=== PATIENT | female | born 1970 | race Caucasian/White ===

== ENCOUNTER 2022-03-22 14:57 | Emergency (ER) | payer BC, SELFPAY ==
--- OUTSIDE RECORDS SUMMARY | 2022-03-22 15:02 | XMS REPORT | Continuity of Care Document ---
:1970 Author Organization [facility] t Address [address] [place] [address] Care Team Providers Name Role Phone Mario Clark MD Primary Care Physician SARAH HARRY Attending Clinician Unavailable Mario Clark MD Attending Clinician Team, [facility] Health Maintenance Attending Clinician Unavailcammie wilson Doctor Unassigned, [place] Attending Clinician Unavailable MARIO CLARK Attending Clinician Unavailable Payers Payer Name Policy Type Policy Effective Date Expiration Date Sour ce Number [facility] [id number] 2021 00:00:00 [employer] [id number] 2018 [facility]704246790108/08 00:00:00 [facility] dical /2019-PresentHMO Branch /PPO/POS Problems Condition Condition Condition Status Onset Resolution Last Treating Co mments Source Name Details Category Date Date Treatment Clinician Date Severe Severe Disease Active Univers headache headache 4-29 ity of 00:00: [place] 00 Medical Branch Non-intrac Non-intrac Disease Active U nivers table table 4-29 ity of vomiting vomiting 00:00: [place] with with 00 Medical nausea, nausea, Branch unspecifie unspecifie d vomiting d vomiting type type Chronic Chronic Disease Active 2014-08 Univers back pain back pain 0-30 ity of 00:00: [place] 00 Medical Branch Anxiety Anxiety Disease Active 2014-08 Univers 0-30 ity of 00:00: [place] 00 Medical Branch Migraine Migraine Disease Active 2014-08 Unive rs equivalent equivalent 0-30 it y of syndrome syndrome 00:00: [place] 00 Medical Branch Allergies, Adverse Reactions, Alerts Allergy Allergy Status Severity Reaction(s) Onset Inactive Treating Comm ents Source Name Type Date Date Clinician CIPROFLO DRUG Active Unknown-Cmnt 2014-08 Un noel ORTEZ INGREDI 0-07 ity of 00:00: [place] 00 Medical Branch Ciproflo Propensi Active Unknown - 2014-08 Uni vers xacin ty to See comments 0-07 ity of adverse 00:00: [place] reaction 00 Medical s Branch Social History Social Habit Start Date Stop Date Quantity Comments Source Exposure to Not sure [facility] SARS-CoV-2 (event) [facility] Alcohol intake 2021-04-29 2021-04-29 .43 /d University of 00:00:00 00:00:00 [facility] Cigarettes smoked 2018-01-26 2018-01-26 Univers ity of current (pack per 00:00:00 00:00:00 [facility] ) - Reported Branch Cigarette 2018-01-26 2018-01-26 University of pack-years 00:00:00 00:00:00 [facility] Tobacco use and 2018-01-26 2018-01-26 Smokeless Universit y of exposure 00:00:00 00:00:00 tobacco non-user [facility] History of tobacco 2010 Cigarette Smoker University of use 00:00:00 [facility] Sex [birth year] Universit y of 00:00:00 00:00:00 [facility] Smoking Status Start Date Stop Date Source Ex-smoker 2018-01-26 00:00:00 2018-01-26 00:00:00 Universi ty of [facility] Medications Ordered Filled Start Stop Current Ordering Indication Dosage Frequency Signature Comments Components Source Medication Medication Date Date Medication? Clinician (SIG) Name Name TIZANIDINE Yes [id number] TAKE 1 U nivers 4 mg tablet 8-01 TABLET BY ity of 00:00: MOUTH [place] 00 EVERY 8 Medical HOURS Branch NEEDED FOR MODERATE PAIN RIZATRIPTAN Yes [id number] DISSOLVE 1 Univers 10 mg 7-25 TABLET ON ity of disintegrat 00:00: THE TONGUE [place] ing tablet 00 EVERY DAY Medi cara NEEDED Branch FOR MIGRAINE HEADACHE RIZATRIPTAN 2022-0 Yes [id number] DISSOLVE 1 Univers 10 mg 7-25 TABLET ON ity of disintegrat 00:00: THE TONGUE [place] ing tablet 00 EVERY DAY Medi cara NEEDED Branch FOR MIGRAINE HEADACHE RIZATRIPTAN 2-0 Yes [id number] DISSOLVE 1 Univers 10 mg 7-06 TABLET ON ity of disintegrat 00:00: THE TONGUE [place] ing tablet 00 EVERY DAY Medi cara NEEDED Branch FOR MIGRAINE HEADACHE RIZATRIPTAN 2021-0 2- No [id number] DISSOLVE 1 Univers 10 mg 7-06 07-25 TABLET ON ity of disintegrat 00:00: 00:00 THE TONGUE [place] ing tablet 00 :00 EVERY DAY Medi cara NEEDED Branch FOR MIGRAINE HEADACHE GABAPENTIN 2-0 Yes [id number] TAKE 1 Univers 400 mg 7-05 CAPSULE BY ity of capsule 00:00: MOUTH [place] 00 THREE Medical TIMES Branch DAILY GABAPENTIN 2022-0 Yes [id number] TAKE 1 Univers 400 mg 7-05 CAPSULE BY ity of capsule 00:00: MOUTH [place] 00 THREE Medical TIMES Branch DAILY GABAPENTIN 2022-0 Yes [id number] TAKE 1 Univers 400 mg 7-05 CAPSULE BY ity of capsule 00:00: MOUTH [place] 00 THREE Medical TIMES Branch DAILY GABAPENTIN 2022-0 Yes [id number] TAKE 1 Univers 400 mg 7-05 CAPSULE BY ity of capsule 00:00: MOUTH [place] 00 THREE Medical TIMES Branch DAILY RIZATRIPTAN 2-0 Yes [id number] DISSOLVE 1 Univers 10 mg 6-27 TABLET ON ity of disintegrat 00:00: THE TONGUE [place] ing tablet 00 EVERY DAY Medi cara NEEDED Branch FOR MIGRAINE HEADACHE RIZATRIPTAN 2021-0 Yes [id number] DISSOLVE 1 Univers 10 mg 6-27 TABLET ON ity of disintegrat 00:00: THE TONGUE [place] ing tablet 00 EVERY DAY Medi cara NEEDED Branch FOR MIGRAINE HEADACHE RIZATRIPTAN 2-0 2- No [id number] DISSOLVE 1 Univers 10 mg 6-27 07-06 TABLET ON ity of disintegrat 00:00: 00:00 THE TONGUE [place] ing tablet 00 :00 EVERY DAY Medi cara NEEDED Branch FOR MIGRAINE HEADACHE RIZATRIPTAN 2021-0 Yes [id number] DISSOLVE 1 Univers 10 mg 6-02 TABLET ON ity of disintegrat 00:00: THE TONGUE [place] ing tablet 00 EVERY DAY Medi cara NEEDED Branch FOR MIGRAINE HEADACHE RIZATRIPTAN 2021-0 2021- No [id number] DISSOLVE 1 Univers 10 mg 6-02 - TABLET ON ity of disintegrat 00:00: 00:00 THE TONGUE [place] ing tablet 00 :00 EVERY DAY Medi cara NEEDED Branch FOR MIGRAINE HEADACHE rizatriptan 2021-0 Yes [id number] DISSOLVE 1 Univers 10 mg 5-20 TABLET ON ity of disintegrat 00:00: THE TONGUE [place] ing tablet 00 EVERY DAY Medi cara NEEDED Branch FOR MIGRAINE HEADACHE rizatriptan 2021-0 Yes [id number] DISSOLVE 1 Univers 10 mg 5-20 TABLET ON ity of disintegrat 00:00: THE TONGUE [place] ing tablet 00 EVERY DAY Medi cara NEEDED Branch FOR MIGRAINE HEADACHE rizatriptan 2021-0 2021- No [id number] DISSOLVE 1 Univers 10 mg 5-20 - TABLET ON ity of disintegrat 00:00: 00:00 THE TONGUE [place] ing tablet 00 :00 EVERY DAY Medi cara NEEDED Branch FOR MIGRAINE HEADACHE tiZANidine 2021-0 Yes [id number] 4mg Take 1 U nivers 4 mg tablet 5-09 tablet by ity of 00:00: mouth [place] 00 every 8 Medical (eight) Branch hours as needed for Pain (scale 4-6). tiZANidine 2021-0 Yes [id number] 4mg Take 1 U nivers 4 mg tablet 5-09 tablet by ity of 00:00: mouth [place] 00 every 8 Medical (eight) Branch hours as needed for Pain (scale 4-6). tiZANidine 2021-0 Yes [id number] 4mg Take 1 U nivers 4 mg tablet 5-09 tablet by ity of 00:00: mouth [place] 00 every 8 Medical (eight) Branch hours as needed for Pain (scale 4-6). tiZANidine 2021-0 Yes [id number] 4mg Take 1 U nivers 4 mg tablet 5-09 tablet by ity of 00:00: mouth [place] 00 every 8 Medical (eight) Branch hours as needed for Pain (scale 4-6). tiZANidine 2021-0 Yes [id number] 4mg Take 1 U nivers 4 mg tablet 5-09 tablet by ity of 00:00: mouth [place] 00 every 8 Medical (eight) Branch hours as needed for Pain (scale 4-6). tiZANidine 2021-0 Yes [id number] 4mg Take 1 U nivers 4 mg tablet 5-09 tablet by ity of 00:00: mouth [place] 00 every 8 Medical (eight) Branch hours as needed for Pain (scale 4-6). tiZANidine 2021-0 Yes [id number] 4mg Take 1 U nivers 4 mg tablet 5-09 tablet by ity of 00:00: mouth [place] 00 every 8 Medical (eight) Branch hours as needed for Pain (scale 4-6). tiZANidine 2021-0 Yes [id number] 4mg Take 1 U nivers 4 mg tablet 5-09 tablet by ity of 00:00: mouth [place] 00 every 8 Medical (eight) Branch hours as needed for Pain (scale 4-6). tiZANidine 2021- No [id number] 4mg Take 1 Univers 4 mg tablet 5-04 15- tablet by it y of 00:00: 00:00 mouth [place] 00 :00 every 8 Medical (eight) Branch hours as needed for Pain (scale 4-6). rizatriptan 0 Yes [id number] DISSOLVE 1 Univers 10 mg 4-26 TABLET ON ity of disintegrat 00:00: THE TONGUE [place] ing tablet 00 EVERY DAY Medi cara NEEDED Branch FOR MIGRAINE HEADACHE rizatriptan 2021-0 Yes [id number] DISSOLVE 1 Univers 10 mg 4-26 TABLET ON ity of disintegrat 00:00: THE TONGUE [place] ing tablet 00 EVERY DAY Medi cara NEEDED Branch FOR MIGRAINE HEADACHE rizatriptan 2021-0 Yes [id number] DISSOLVE 1 Univers 10 mg 4-26 TABLET ON ity of disintegrat 00:00: THE TONGUE [place] ing tablet 00 EVERY DAY Medi cara NEEDED Branch FOR MIGRAINE HEADACHE rizatriptan 2021-2021- No [id number] DISSOLVE 1 Univers 10 mg 4-26 05-20 TABLET ON ity of disintegrat 00:00: 00:00 THE TONGUE [place] ing tablet 00 :00 EVERY DAY Medi cara NEEDED Branch FOR MIGRAINE HEADACHE rizatriptan 2021-2021- No [id number] TAKE 1 Univers 10 mg 3-16 04-26 TABLET BY ity of disintegrat 00:00: 00:00 MOUTH QD [place] ing tablet 00 :00 NEEDED Medi cara FOR Branch MIGRAINE HEADACHE Ketorolac 2021-2021- No [id number] 60mg Uni vers Tromethamin 2-17 02-17 ity of e (TORADOL) 21:30: 20:46 [place] injection 00 :00 Medical syringe 60 Branch mg proMETHazin 2021- No [id number] 25mg U nivers e 09-24 ity of (PHENERGAN) 21:30: 20:50 [place] injection 00 :00 Medical 25 mg Branch proMETHazin 2021- No [id number] 25mg 25 mg, Univers e 09-24 Intramuscu ity of (PHENERGAN) 21:30: 20:50 lar, ONCE, [place] injection 00 :00 1 dose, On Medi cara 25 mg [place] Branch 09/24/21 at 1530, Routine Ketorolac 2021- No [id number] 60mg 60 mg, U nivers Tromethamin 09-24 Intramuscu i ty of e (TORADOL) 21:30: 20:46 lar, ONCE, [place] injection 00 :00 1 dose, On Medi cara syringe 60 [place] Branch mg 09/24/21 at 1530, Routine Ketorolac 2021- No [id number] 60mg Uni vers Tromethamin 09-24 ity of e (TORADOL) 21:30: 20:46 [place] injection 00 :00 Medical syringe 60 Branch mg proMETHazin 2021- No [id number] 25mg U nivers e 09-24 ity of (PHENERGAN) 21:30: 20:50 [place] injection 00 :00 Medical 25 mg Branch proMETHazin 0 2021- No [id number] 25mg 25 mg, Univers e 09-24 Intramuscu ity of (PHENERGAN) 21:30: 20:50 lar, ONCE, [place] injection 00 :00 1 dose, On Medi cara 25 mg [place] Branch 09/24/21 at 1530, Routine Ketorolac 0 2021- No [id number] 60mg 60 mg, U nivers Tromethamin 09-24 Intramuscu i ty of e (TORADOL) 21:30: 20:46 lar, ONCE, [place] injection 00 :00 1 dose, On Medi cara syringe 60 [place] Branch mg 09/24/21 at 1530, Routine tiZANidine 2022-0 Yes [id number] 4mg Take 1 U nivers 4 mg tablet 1-10 tablet by ity of 00:00: mouth [place] 00 every 8 Medical (eight) Branch hours as needed for Pain (scale 4-6). rizatriptan 2021-0 Yes [id number] TAKE 1 Univers 10 mg 1-10 TABLET BY ity of disintegrat 00:00: MOUTH QD [place] ing tablet 00 NEEDED Medi cara FOR Branch MIGRAINE HEADACHE ketorolac 2021-0 Yes [id number] TAKE 1 U nivers 10 mg 1-10 TABLET BY ity of tablet 00:00: MOUTH [place] 00 EVERY 6 Medical HOURS Branch NEEDED FOR PAIN tiZANidine 2021-0 Yes [id number] 4mg Take 1 U nivers 4 mg tablet 1-10 tablet by ity of 00:00: mouth [place] 00 every 8 Medical (eight) Branch hours as needed for Pain (scale 4-6). rizatriptan 2021-0 Yes [id number] TAKE 1 Univers 10 mg 1-10 TABLET BY ity of disintegrat 00:00: MOUTH QD [place] ing tablet 00 NEEDED Medi cara FOR Branch MIGRAINE HEADACHE ketorolac 2021-0 Yes [id number] TAKE 1 U nivers 10 mg 1-10 TABLET BY ity of tablet 00:00: MOUTH [place] 00 EVERY 6 Medical HOURS Branch NEEDED FOR PAIN tiZANidine 2021-0 Yes [id number] 4mg Take 1 U nivers 4 mg tablet 1-10 tablet by ity of 00:00: mouth [place] 00 every 8 Medical (eight) Branch hours as needed for Pain (scale 4-6). ketorolac 2-0 Yes [id number] TAKE 1 U nivers 10 mg 1-10 TABLET BY ity of tablet 00:00: MOUTH [place] 00 EVERY 6 Medical HOURS Branch NEEDED FOR PAIN tiZANidine 2021-0 Yes [id number] 4mg Take 1 U nivers 4 mg tablet 1-10 tablet by ity of 00:00: mouth [place] 00 every 8 Medical (eight) Branch hours as needed for Pain (scale 4-6). ketorolac 2022-0 Yes [id number] TAKE 1 U nivers 10 mg 1-10 TABLET BY ity of tablet 00:00: MOUTH [place] 00 EVERY 6 Medical HOURS Branch NEEDED FOR PAIN ketorolac 2-0 Yes [id number] TAKE 1 U nivers 10 mg 1-10 TABLET BY ity of tablet 00:00: MOUTH 00 EVERY 6 Medical HOURS Branch NEEDED FOR PAIN ketorolac 2022-0 Yes [id number] TAKE 1 U nivers 10 mg 1-10 TABLET BY ity of tablet 00:00: MOUTH [place] 00 EVERY 6 Medical HOURS Branch NEEDED FOR PAIN ketorolac 2022-0 Yes [id number] TAKE 1 U nivers 10 mg 1-10 TABLET BY ity of tablet 00:00: MOUTH [place] 00 EVERY 6 Medical HOURS Branch NEEDED FOR PAIN ketorolac 2022-0 Yes [id number] TAKE 1 U nivers 10 mg 1-10 TABLET BY ity of tablet 00:00: MOUTH [place] 00 EVERY 6 Medical HOURS Branch NEEDED FOR PAIN ketorolac 2-0 Yes [id number] TAKE 1 U nivers 10 mg 1-10 TABLET BY ity of tablet 00:00: MOUTH 00 EVERY 6 Medical HOURS Branch NEEDED FOR PAIN ketorolac 2-0 Yes [id number] TAKE 1 U nivers 10 mg 1-10 TABLET BY ity of tablet 00:00: MOUTH 00 EVERY 6 Medical HOURS Branch NEEDED FOR PAIN ketorolac 2-0 Yes [id number] TAKE 1 U nivers 10 mg 1-10 TABLET BY ity of tablet 00:00: MOUTH [place] 00 EVERY 6 Medical HOURS Branch NEEDED FOR PAIN ketorolac 2022-0 Yes [id number] TAKE 1 U nivers 10 mg 1-10 TABLET BY ity of tablet 00:00: [facility] EVERY 6 Medical HOURS Branch NEEDED FOR PAIN ketorolac 2022-0 Yes [id number] TAKE 1 U nivers 10 mg 1-10 TABLET BY ity of tablet 00:00: MOUTH [place] 00 EVERY 6 Medical HOURS Branch NEEDED FOR PAIN tiZANidine 2022-0 2- No [id number] 4mg Take 1 Univers 4 mg tablet 1-10 05-06 tablet by it y of 00:00: 00:00 mouth [place] 00 :00 every 8 Medical (eight) Branch hours as needed for Pain (scale 4-6). GABAPENTIN 2020-08 Yes [id number] TAKE 1 Univers 400 mg 1-30 CAPSULE BY ity of capsule 00:00: MOUTH [place] 00 THREE Medical TIMES Branch DAILY GABAPENTIN 2020- Yes [id number] TAKE 1 Univers 400 mg 1-30 CAPSULE BY ity of capsule 00:00: MOUTH [place] 00 THREE Medical TIMES Branch DAILY GABAPENTIN 2020-1 Yes [id number] TAKE 1 Univers 400 mg 1-30 CAPSULE BY ity of capsule 00:00: MOUTH [place] 00 THREE Medical TIMES Branch DAILY GABAPENTIN 202-1 Yes [id number] TAKE 1 Univers 400 mg 1-30 CAPSULE BY ity of capsule 00:00: MOUTH [place] 00 THREE Medical TIMES Branch DAILY GABAPENTIN 2020-1 Yes [id number] TAKE 1 Univers 400 mg 1-30 CAPSULE BY ity of capsule 00:00: MOUTH [place] 00 THREE Medical TIMES Branch DAILY GABAPENTIN 2020-1 Yes [id number] TAKE 1 Univers 400 mg 1-30 CAPSULE BY ity of capsule 00:00: MOUTH [place] 00 THREE Medical TIMES Branch DAILY GABAPENTIN 2020- Yes [id number] TAKE 1 Univers 400 mg 1-30 CAPSULE BY ity of capsule 00:00: MOUTH [place] 00 THREE Medical TIMES Branch DAILY GABAPENTIN 2020- Yes [id number] TAKE 1 Univers 400 mg 1-30 CAPSULE BY ity of capsule 00:00: MOUTH [place] 00 THREE Medical TIMES Branch DAILY GABAPENTIN 2020-1 Yes [id number] TAKE 1 Univers 400 mg 1-30 CAPSULE BY ity of capsule 00:00: MOUTH [place] 00 THREE Medical TIMES Branch DAILY GABAPENTIN 2020- 2022- No [id number] TAKE 1 Univers 400 mg 1-30 07-05 CAPSULE BY ity of capsule 00:00: 00:00 MOUTH [place] 00 :00 THREE Medical TIMES Branch DAILY methylPREDN 2020-0 Yes [id number] Take by Univers ISolone 7-24 mouth ity of (MEDROL, 00:00: SEE-INSTRU [place]AYA,) 4 mg 00 CTIONS. Medica l tablets follow Branch package directions methylPREDN 2020-0 Yes [id number] Take by Univers ISolone 7-24 mouth ity of (MEDROL, 00:00: SEE-INSTRU [place],) 4 mg 00 CTIONS. Medica l tablets follow Branch package directions methylPREDN 2020-0 Yes [id number] Take by Univers ISolone 7-24 mouth ity of (MEDROL, 00:00: SEE-INSTRU [place],) 4 mg 00 CTIONS. Medica l tablets follow Branch package directions methylPREDN 2020-0 Yes [id number] Take by Univers ISolone -24 mouth ity of (MEDROL, 00:00: SEE-INSTRU [place],) 4 mg 00 CTIONS. Medica l tablets follow Branch package directions methylPREDN 2021-0 Yes [id number] Take by [facility] ISolone 7-24 mouth ity of (MEDROL, 00:00: SEE-INSTRU [place],) 4 mg 00 CTIONS. Medica l tablets follow Branch package directions methylPREDN 2021-0 Yes [id number] Take by [facility] ISolone 24 mouth ity of (MEDROL, 00:00: SEE-INSTRU [place],) 4 mg 00 CTIONS. Medica l tablets follow Branch package directions methylPREDN 2021-0 Yes Take by [facility] ISolone 24 mouth ity of (MEDROL, 00:00: SEE-INSTRU [place],) 4 mg 00 CTIONS. Medica l tablets follow Branch package directions methylPREDN 2021-0 [id number] [facility] (MED[facility]OL, 00:00: SEE-INSTRU [place],) 4 mg 00 CTIONS. Medica l tablets follow Branch package directions methylPREDN 2021-0 Yes [id number] Take by [facility] ISolone 24 mouth ity of (MEDROL, 00:00: SEE-INSTRU [place],) 4 mg 00 CTIONS. Medica l tablets follow Branch package directions methylPREDN 2021-0 Yes [id number] [facility] (MEDROL, 00:00: SEE-INSTRU [place],) 4 mg 00 CTIONS. Medica l tablets follow Branch package directions methylPREDN 2021-0 Yes [id number] Take by [facility] ISolone 7-24 mouth ity of (MEDROL, 00:00: SEE-INSTRU [place],) 4 mg 00 CTIONS. Medica l tablets follow Branch package directions methylPREDN 2021-0 Yes [id number] [facility]y of (MEDROL, 00:00: SEE-INSTRU [place],) 4 mg 00 CTIONS. Medica l tablets follow Branch package directions methylPREDN 2021-0 Yes [id number] Take by Univers ISolone 7-24 mouth ity of (MEDROL, 00:00: SEE-INSTRU [place],) 4 mg 00 CTIONS. Medica l tablets follow Branch package directions bromphenira Yes [id number] 5mL Take 5 mL Univers mine-pseudo 7-19 by mouth 4 it y of ephedrine-D 00:00: (four) [place] (BROMFED 00 times Medical DM) 2-30-10 daily as Bran ch mg/5 mL needed for syrup Congestion /Allergies . benzonatate Yes [id number] 200mg Take 2 Univers 100 mg 7-19 capsules ity of capsule 00:00: [place] mouth 2 [place] 00 (two) Medical times Branch daily as needed for Cough. albuterol Yes [id number] 2{puff} Inhale 2 Univers 90 7-19 Puffs ity of mcg/actuati 00:00: every 6 [place] on inhaler 00 (six) Medical hours as Branch needed for Wheezing or Shortness of Breath. albuterol Yes [id number] 2{puff} Inhale 2 Univers 90 7-19 Puffs ity of mcg/actuati 00:00: every 6 [place] on inhaler 00 (six) Medical hours as Branch needed for Wheezing or Shortness of Breath. bromphenira Yes [id number] 5mL Take 5 mL Univers mine-pseudo 7-19 by mouth 4 it y of ephedrine-D 00:00: (four) [place] (BROMFED 00 times Medical DM) 2-30-10 daily as Bran ch mg/5 mL needed for syrup Congestion /Allergies . benzonatate Yes [id number] 200mg Take 2 Univers 100 mg 7-19 capsules ity of capsule 00:00: [place] mouth 2 [place] 00 (two) Medical times Branch daily as needed for Cough. albuterol Yes [id number] 2{puff} Inhale 2 Univers 90 7-19 Puffs ity of mcg/actuati 00:00: every 6 [place] on inhaler 00 (six) Medical hours as Branch needed for Wheezing or Shortness of Breath. albuterol Yes [id number] 2{puff} Inhale 2 Univers 90 7-19 Puffs ity of mcg/actuati 00:00: every 6 [place] on inhaler 00 (six) Medical hours as Branch needed for Wheezing or Shortness of Breath. bromphenira Yes [id number] 5mL Take 5 mL Univers mine-pseudo 7-19 by mouth 4 it y of ephedrine-D 00:00: (four) [place] (BROMFED 00 times Medical DM) 2-30-10 daily as Bran ch mg/5 mL needed for syrup Congestion /Allergies . benzonatate Yes [id number] 200mg Take 2 Univers 100 mg 7-19 capsules ity of capsule 00:00: [place] mouth 2 [place] 00 (two) Medical times Branch daily as needed for Cough. albuterol Yes [id number] 2{puff} Inhale 2 Univers 90 7-19 Puffs ity of mcg/actuati 00:00: every 6 [place] on inhaler 00 (six) Medical hours as Branch needed for Wheezing or Shortness of Breath. albuterol Yes [id number] 2{puff} Inhale 2 Univers 90 7-19 Puffs ity of mcg/actuati 00:00: every 6 [place] on inhaler 00 (six) Medical hours as Branch needed for Wheezing or Shortness of Breath. bromphenira Yes [id number] 5mL Take 5 mL Univers mine-pseudo 7-19 by mouth 4 it y of ephedrine-D 00:00: (four) [place] (BROMFED 00 times Medical DM) 2-30-10 daily as Bran ch mg/5 mL needed for syrup Congestion /Allergies . benzonatate Yes [id number] 200mg Take 2 Univers 100 mg 7-19 capsules ity of capsule 00:00: [place] mouth 2 [place] 00 (two) Medical times Branch daily as needed for Cough. albuterol Yes [id number] 2{puff} Inhale 2 Univers 90 7-19 Puffs ity of mcg/actuati 00:00: every 6 [place] on inhaler 00 (six) Medical hours as Branch needed for Wheezing or Shortness of Breath. albuterol Yes [id number] 2{puff} Inhale 2 Univers 90 7-19 Puffs ity of mcg/actuati 00:00: every 6 [place] on inhaler 00 (six) Medical hours as Branch needed for Wheezing or Shortness of Breath. bromphenira Yes [id number] 5mL Take 5 mL Univers mine-pseudo 7-19 by mouth 4 it y of ephedrine-D 00:00: (four) [place] (BROMFED 00 times Medical DM) 2-30-10 daily as Bran ch mg/5 mL needed for syrup Congestion /Allergies . benzonatate Yes [id number] 200mg Take 2 Univers 100 mg 7-19 capsules ity of capsule 00:00: by mouth 2 [place] 00 (two) Medical times Branch daily as needed for Cough. albuterol Yes [id number] 2{puff} Inhale 2 Univers 90 7-19 Puffs ity of mcg/actuati 00:00: every 6 [place] on inhaler 00 (six) Medical hours as Branch needed for Wheezing or Shortness of Breath. albuterol Yes [id number] 2{puff} Inhale 2 Univers 90 7-19 Puffs ity of mcg/actuati 00:00: every 6 [place] on inhaler 00 (six) Medical hours as Branch needed for Wheezing or Shortness of Breath. bromphenira Yes [id number] 5mL Take 5 mL Univers mine-pseudo 7-19 by mouth 4 it y of ephedrine-D 00:00: (four) [place] (BROMFED 00 times Medical DM) 2-30-10 daily as Bran ch mg/5 mL needed for syrup Congestion /Allergies . benzonatate Yes [id number] 200mg Take 2 Univers 100 mg 7-19 capsules ity of capsule 00:00: by mouth 2 [place] 00 (two) Medical times Branch daily as needed for Cough. albuterol Yes [id number] 2{puff} Inhale 2 Univers 90 7-19 Puffs ity of mcg/actuati 00:00: every 6 [place] inhaler 00 (six) Medical hours as Branch needed for Wheezing or Shortness of Breath. albuterol Yes [id number] 2{puff} Inhale 2 Univers 90 7-19 Puffs ity of mcg/actuati 00:00: every 6 [place] inhaler 00 (six) Medical hours as Branch needed for Wheezing or Shortness of Breath. bromphenira Yes [id number] 5mL Take 5 mL Univers mine-pseudo 7-19 by mouth 4 it y of ephedrine-D 00:00: (four) [place] (BROMFED 00 times Medical DM) 2-30-10 daily as Bran ch mg/5 mL needed for syrup Congestion /Allergies . benzonatate Yes [id number] 200mg Take 2 Univers 100 mg 7-19 capsules ity of capsule 00:00: by mouth 2 [place] 00 (two) Medical times Branch daily as needed for Cough. albuterol Yes [id number] 2{puff} Inhale 2 Univers 90 7-19 Puffs ity of mcg/actuati 00:00: every 6 [place] inhaler 00 (six) Medical hours as Branch needed for Wheezing or Shortness of Breath. albuterol Yes [id number] 2{puff} Inhale 2 Univers 90 7-19 Puffs ity of mcg/actuati 00:00: every 6 [place] inhaler 00 (six) Medical hours as Branch needed for Wheezing or Shortness of Breath. bromphenira Yes [id number] 5mL Take 5 mL Univers mine-pseudo 7-19 by mouth 4 it y of ephedrine-D 00:00: (four) [place] (BROMFED 00 times Medical DM) 2-30-10 daily as Bran ch mg/5 mL needed for syrup Congestion /Allergies . benzonatate Yes [id number] 200mg Take 2 Univers 100 mg 7-19 capsules ity of capsule 00:00: [place] mouth 2 [place] 00 (two) Medical times Branch daily as needed for Cough. albuterol Yes [id number] 2{puff} Inhale 2 Univers 90 7-19 Puffs ity of mcg/actuati 00:00: every 6 [place] inhaler 00 (six) Medical hours as Branch needed for Wheezing or Shortness of Breath. albuterol 0 Yes [id number] 2{puff} Inhale 2 Univers 90 7-19 Puffs ity of mcg/actuati 00:00: every 6 [place] on inhaler 00 (six) Medical hours as Branch needed for Wheezing or Shortness of Breath. bromphenira Yes [id number] 5mL Take 5 mL Univers mine-pseudo 7-19 by mouth 4 it y of ephedrine-D 00:00: (four) [place] (BROMFED 00 times Medical DM) 2-30-10 daily as Bran ch mg/5 mL needed for syrup Congestion /Allergies . benzonatate Yes [id number] 200mg Take 2 [facility] 100 mg 7-19 capsules ity of capsule 00:00: [place] mouth 2 [place] 00 (two) Medical times Branch daily as needed for Cough. albuterol Yes [id number] 2{puff} Inhale 2 Univers 90 7-19 Puffs ity of mcg/actuati 00:00: every 6 [place] on inhaler 00 (six) Medical hours as Branch needed for Wheezing or Shortness of Breath. albuterol Yes [id number] 2{puff} Inhale 2 Univers 90 7-19 Puffs ity of mcg/actuati 00:00: every 6 [place] as on inhaler 00 (six) Medical hours as Branch needed for Wheezing or Shortness of Breath. bromphenira Yes [id number] 5mL Take 5 mL Univers mine-pseudo 7-19 by mouth 4 it y of ephedrine-D 00:00: (four[place] (BROMF[place] 00 times Medical DM) 2-30-10 daily as Bran ch mg/5 mL needed for syrup Congestion /Allergies . benzonatate Yes [id number] 200mg Take 2 [facility] 100 mg 7-19 capsules [place] of capsule 00:00: [place] mouth 2 [place] 00 (two) [place] times Branch daily as needed for Cough. albuterol Yes [id number] 2{puff} Inhale 2 [facility] 90 7-19 Puffs ity of mcg/actuati 00:00: every 6 [place] on inhaler 00 (six) Medical hours as Branch needed for Wheezing or Shortness of Breath. albuterol 0 Yes [id number] 2{puff} Inhale 2 [facility] 90 7-19 Puffs ity of mcg/actuati 00:00: every 6 [place] on inhaler 00 (six) Medical hours as Branch needed for Wheezing or Shortness of Breath. bromphenira 2021-0 Yes [id number] 5mL Take 5 mL [facility] mine-pseudo 7-19 by mouth 4 it y of ephedrine-D 00:00: (four[place] (BROMFED 00 times Medical DM) 2-30-10 daily as Bran ch mg/5 mL needed for syrup Congestion /Allergies . benzonatate Yes [id number] 200mg Take 2 [facility] 100 mg 7-19 capsules [place] of capsule 00:00: [place] mouth 2 [place] 00 (two) [place] times Branch daily as needed for Cough. albuterol Yes [id number] 2{puff} Inhale 2 [facility] 90 7-19 Puffs ity of mcg/actuati 00:00: every 6 [place] on inhaler 00 (six) Medical hours as Branch needed for Wheezing or Shortness of Breath. albuterol Yes [id number] 2{puff} Inhale 2 [facility] 90 7-19 Puffs ity of mcg/actuati 00:00: every 6 [place] on inhaler 00 (six) Medical hours as Branch needed for Wheezing or Shortness of Breath. bromphenira Yes [id number] 5mL Take 5 mL [facility] mine-pseudo 7-19 by mouth 4 it y of ephedrine-D 00:00: (four[place] (BROMFED 00 times Medical DM) 2-30-10 daily as Bran ch mg/5 mL needed for syrup Congestion /Allergies . benzonatate Yes [id number] 200mg Take 2 [facility] 100 mg 7-19 capsules [place] of capsule 00:00: [place] mouth 2 [place] 00 (two) Medical times Branch daily as needed for Cough. albuterol Yes [id number] 2{puff} Inhale 2 [facility] 90 7-19 Puffs ity of mcg/actuati 00:00: every 6 [place] on inhaler 00 (six) Medical hours as Branch needed for Wheezing or Shortness of Breath. albuterol 0 Yes [id number] 2{puff} Inhale 2 [facility] 90 7-19 Puffs ity of mcg/actuati 00:00: every 6 [place] on inhaler 00 (six) Medical hours as Branch needed for Wheezing or Shortness of Breath. bromphenira 0 Yes [id number] 5mL Take 5 mL [facility] mine-pseudo 7-19 by mouth 4 it y of ephedrine-D 00:00: (four[place] (BROMFED 00 times Medical DM) 2-30-10 daily as Bran ch mg/5 mL needed for syrup Congestion /Allergies . benzonatate Yes [id number] 200mg Take 2 [facility] 100 mg 7-19 capsules it[place] of capsule 00:00: by mouth 2 [place] 00 (two) Medical times Branch daily as needed for Cough. albuterol Yes [id number] 2{puff} Inhale 2 [facility] 90 7-19 Puffs ity of mcg/actuati 00:00: every 6 [place] on inhaler 00 (six) Medical hours as Branch needed for Wheezing or Shortness of Breath. albuterol Yes [id number] 2{puff} Inhale 2 [facility] 90 7-19 Puffs ity of mcg/actuati 00:00: every 6 [place] as on inhaler 00 (six) Medical hours as Branch needed for Wheezing or Shortness of Breath. butalbital- Yes chronic TAKE ONE Univers acetaminop- 2-09 pain CAPSULE BY it y of caff-codein 00:00: MOUTH [place] e 00 EVERY 4 Medical 50-300-40-3 HOURS Bran ch 0 mg per NEEDED capsule Indication s: chronic pain ketorolac Yes Chronic TAKE 1 Uni vers 10 mg 2-09 bilateral TABLET BY ity of tablet 00:00: low back MOUTH [place] 00 pain EVERY 6 Medical without HOURS Branch sciatica NEEDED FOR PAIN gabapentin 2019-08 Yes Neuropathy 400mg Take 1 [facility] 400 mg 1-09 capsule by ity of capsule 00:00: mouth 3 [place] 00 (three) Medical times Branch daily. rizatriptan 2019-08 Yes TMJ May repeat Univers 10 mg 1-09 (temporoman in 2 hours i ty of disintegrat 00:00: dibular if needed [place] ing tablet 00 joint Medical syndrome) Branch proMETHazin Yes TMJ TAKE 1 Univ ers e 25 mg 7-15 (temporoman TABLET BY ity of tablet 00:00: dibular MOUTH [place] 00 joint EVERY 4 Medical syndrome) HOURS Branch NEEDED FOR NAUSEA OR VOMITING benzonatate Yes Cough 100mg Take 1 Un noel 100 mg 7-31 capsule by ity of capsule 00:00: mouth 3 [place] 00 (three) Medical times Branch daily as needed for Cough. acyclovir 5 2017-08 Yes Apply to Un noel % ointment 0-02 area(s) 5 ity of 00:00: (five) [place] 00 times Medical daily. Branch acyclovir 5 2017-08 Yes Apply to Un noel % ointment 0-02 area(s) 5 ity of 00:00: (five) [place] 00 times Medical daily. Branch acyclovir 5 2017-08 Yes Apply to Un noel % ointment 0-02 area(s) 5 ity of 00:00: (five) [place] 00 times Medical daily. Branch acyclovir 5 2017-08 Yes Apply to Un noel % ointment 0-02 area(s) 5 ity of 00:00: (five) [place] 00 times Medical daily. Branch acyclovir 5 2017-08 Yes Apply to Un noel % ointment 0-02 area(s) 5 ity of 00:00: (five) [place] 00 times Medical daily. Branch acyclovir 5 2017-08 Yes Apply to Un noel % ointment 0-02 area(s) 5 ity of 00:00: (five) [place] 00 times Medical daily. Branch acyclovir 5 2017-08 Yes Apply to Un noel % ointment 0-02 area(s) 5 ity of 00:00: (five) [place] 00 times Medical daily. Branch acyclovir 5 2017-08 Yes Apply to Un noel % ointment 0-02 area(s) 5 ity of 00:00: (five) [place] 00 times Medical daily. Branch acyclovir 5 2017-08 Yes Apply to Un noel % ointment 0-02 area(s) 5 ity of 00:00: (five) [place] 00 times Medical daily. Branch acyclovir 5 2017-08 Yes Apply to Un noel % ointment 0-02 area(s) 5 ity of 00:00: (five) [place] 00 times Medical daily. Branch acyclovir 5 2017-08 Yes Apply to Un noel % ointment 0-02 area(s) 5 ity of 00:00: (five) [place] 00 times Medical daily. Branch acyclovir 5 2017-08 Yes Apply to Un noel % ointment 0-02 area(s) 5 ity of 00:00: (five) [place] 00 times Medical daily. Branch acyclovir 5 2017-08 Yes Apply to Un noel % ointment 0-02 area(s) 5 ity of 00:00: (five) [place] 00 times Medical daily. Branch acyclovir 5 2017-08 Yes Apply to Un noel % ointment 0-02 area(s) 5 ity of 00:00: (five) [place] 00 times Medical daily. Branch Vital Signs Vital Name Observation Time Observation Value Comments Source Systolic blood 2021-09-24 20:16:00 120 mm[facility]Hg[facility] [place] Diastolic blood 2021-09-24 20:16:00 84 mm[facility]Hg[facility] Body weight 2021-09-24 20:16:00 56.7 kg [facility] BMI 2021-09-24 20:16:00 19.01 kg/m2 [facility] Procedures Procedure Date / Time Performing Clinician Source Performed MEDICATION CORRESPONDENCE 2020-11-14 05:01:00 Doctor Unassigned, [facility] [place] [facility] [place] Plan of Care Planned Activity Planned Date Details Comments Source Future Scheduled 2021-09-16 Depression University of Test 00:00:00 screening [place] [facility] (procedure) [code Branch = 841219961] Future Scheduled 2021 Screening for University of Test 00:00:00 malignant neoplasm [place] [facility] ical of colon Branch (procedure) [code = 600097812] Future Scheduled 2021-02-04 INFLUENZA VACCINE [facility] [place] [facility] (#1) [code = 04/08/2020 [facility] INFLUENZA VACCINE (Refused) Branch (#1)] Future Scheduled 2011 Screening for University of Test 00:00:00 malignant neoplasm [place] [facility] ical of breast Branch (procedure) [code = 735681500] Future Scheduled 1990 DTaP,Tdap,and Td Univers ity of Test 00:00:00 Vaccines (1 - [place] [facility] Tdap) [code = Branch DTaP,Tdap,and Td Vaccines (1 - Tdap)] Encounters Start End Encounter Admission Attending Care Care Encounter Source Date/Time Date/Time Type Type Clinicians Facility Department ID 2022-03-22 2022-03-22 Outpatient R [facility] [id number] Univers 14:40:00 14:40:00 [id number] [facility] 2022-03-22 2022-03-22 Outpatient R KAMRYN [facility] [id number] Univers 14:40:00 14:40:00 SARAH [facility] 2022-03-08 2022-03-08 [facility].2.840.114 [id number] Univers 00:00:00 00:00:00 Mario HEALTH 350.1.13.10 it y of [place] 4.2.7.2.686 [place] as [place]AN[place]?BLEA [id number] [address] 2022-03-01 2022-03-01 [facility] 1.2.840.114 [id number] Univers 00:00:00 00:00:00 Mario HEALTH 350.1.13.10 it y of [place] 4.2.7.2.686 [place] as [place]AN[place]?BLEA [id number] [address] OFFICE [facility] 2022-02-10 2022-02-10 [facility] 1.2.840.114 [id number] Univers 00:00:00 00:00:00 Mario HEALTH 350.1.13.10 it y of [place] 4.2.7.2.686 [place] as [place]ANNER?BLEA [id number] [address] 2022-02-07 2022-02-07 [facility] 1.2.840.114 [id number] Univers 00:00:00 00:00:00 Mario HEALTH 350.1.13.10 it y of [place] 4.2.7.2.686 [place] as [place]ANNER?BLEA [id number] [address] 2022-02-01 2022-02-01 [facility] 1.2.840.114 [id number] Univers 00:00:00 00:00:00 Mario HEALTH 350.1.13.10 it y of [place] 4.2.7.2.686 [place] as TANNER?BLEA [id number] [facility] [address] MEDICAL OFFICE [facility] 2022-01-07 2022-01-07 Refill Eduardo [facility] 1.2.840.114 [id number] Univers 00:00:00 00:00:00 Mario HEALTH 350.1.13.10 it y of [place] 4.2.7.2.686 [place] as TANNER?BLEA [id number] [address] OFFICE [facility] 2021-12-30 2021-12-30 Telephone Team, [facility] 1.2.840.114 [id number] Univers 00:00:00 00:00:00 Health [place] 350.1.13.[address] [facility] 4.2.7.2.686 [place] [id number] [address] 2021-12-25 2021-12-25 Refill Doctor [facility] 1.2.840.114 [id number] Univers 00:00:00 00:00:00 Unassigned, HEALTH 350.1.13.10 ity of [place] 4.2.7.2.686 [place]avy as TANNER?BLEA [id number] [address] OFFICE [facility] 2021-12-11 2021-12-11 Refill Doctor [facility] 1.2.840.114 [id number] Univers 00:00:00 00:00:00 Unassigned, HEALTH 350.1.13.10 ity of [place] 4.2.7.2.686 [place] as TANNER?BLEA [id number] [address] OFFICE [facility] 2021-12-11 2021-12-11 Refill Doctor [place] 1.2.840.114 [id number] Univers 00:00:00 00:00:00 Unassigned, HEALTH 350.1.13.10 ity of [place] 4.2.7.2.686 [place] as TANNER?BLEA [id number] [address] MEDICAL OFFICE [facility] 2021-12-01 2021-12-01 Refill Eduardo [facility] 1.2.840.114 [id number] Univers 00:00:00 00:00:00 Mario HEALTH 350.1.13.10 it y of [place] 4.2.7.2.686 [place] as TANNER?BLEA [phone] [address] MEDICAL OFFICE BUILDING 2021-09-24 2021-09-24 Office Eduardo [facility] 1.2.840.114 [id number] Univers 14:30:00 14:37:41 Visit [facility] 350.1.13.10 it y of [place] 4.2.7.2.686 [place] as TANNER?BLEA [id number] [address] MEDICAL OFFICE BUILDING 2021-09-24 2021-09-24 Outpatient R EDUARDO [facility] [id number] Univers 14:30:00 14:37:41 MARIO dacosta of [facility] Results This patient has no known results.
[2022-03-22] MEDS ORDERED: DIAZEPAM 5 MG TABLET ONE ×2 (16:28→19:21)
[2022-03-22] MEDS ORDERED: LIDOCAINE JELLY 2%- 5 ML TUBE ONE (16:28)
[2022-03-22] MEDS ORDERED: TETANUS & DIPHTHERIA TOX,ADULT 0.5 ML VIAL ONE (18:15)
[2022-03-22] MEDS ORDERED: AZITHROMYCIN 250 MG TAB ONE (18:15)
[2022-03-22] MEDS ORDERED: LIDOCAINE 2% MPF 5 ML VIAL ONE (18:15)
[2022-03-22] MEDS ORDERED: BUPIVACAINE 0.5% PF 10 ML VIAL ONE (18:15)
--- NOTE | 2022-03-22 18:17 | RAD REPORT ---
EXAM DESCRIPTION: RAD - Foot Right 3 View - 03/22/2022 6:02 pm CLINICAL HISTORY: Right foot pain status post injury FINDINGS: No fracture or dislocation is seen Curvilinear density adjacent to the first metatarsal head. This may represent a foreign body or be pa rt of the bandage and should be correlated clinically.
--- NOTE | 2022-03-22 18:48 | EDPHYS ---
Physician Documentation [facility] Name: Fransisca Javier Age: 51 yrs Sex: Female : 1970 Arrival Date: 03/22/2022 Time: 15:00 Bed 12 Private MD: Jorje Reynaga B ED Physician Da Albarran HPI: 03/22 16:30 This 51 yrs old Female presents to ER via Wheelchair with complaints of Foreign body in snw foot. 16:30 The patient presents with an injury, pain, that is acute, tenderness. The complaints snw affect the right foot. Context: The problem was sustained outdoors, resulted from a mis-step by the patient, wooden surface, Mechanism of Injury: puncture wound the patient is not able to bear weight. Onset: The symptoms/episode began/occurred suddenly, just prior to arrival. Associated signs and symptoms: Pertinent positives: swelling. Severity of symptoms: At their worst the symptoms were moderate. The patient has not experienced similar symptoms in the past. has PCP. pt highly excited, aprehensive. Historical: - Allergies: 16:11 Ciprofloxacin; ph - PMHx: 16:11 Migraines; TMJ; ph - PSHx: 16:11 Total abdominal hysterectomy; ph - Immunization history:: Last tetanus immunization: unknown. - Social history:: Smoking status: Reported history of juuling and/or vaping. ROS: 16:29 Constitutional: Negative for fever, chills, and weight loss, Eyes: Negative for injury, snw pain, redness, and discharge, ENT: Negative for injury, pain, and discharge, Neck: Negative for injury, pain, and swelling, Cardiovascular: Negative for chest pain, palpitations, and edema, Respiratory: Negative for shortness of breath, cough, wheezing, and pleuritic chest pain, Abdomen/GI: Negative for abdominal pain, nausea, vomiting, diarrhea, and constipation, Back: Negative for injury and pain, : Negative for injury, bleeding, discharge, and swelling, Skin: Negative for injury, rash, and discoloration, Neuro: Negative for headache, weakness, numbness, tingling, and seizure, Psych: Negative for depression, anxiety, suicide ideation, homicidal ideation, and hallucinations. 16:29 MS/extremity: Positive for injury or acute deformity, pain, puncture, swelling, of the right foot. Exam: 16:24 Constitutional: This is a well developed, well nourished patient who is awake, alert, snw and in no acute distress. Head/Face: Normocephalic, atraumatic. Eyes: Pupils equal round and reactive to light, extra-ocular motions intact. Lids and lashes normal. Conjunctiva and sclera are non-icteric and not injected. Cornea within normal limits. Periorbital areas with no swelling, redness, or edema. ENT: Nares patent. No nasal discharge, no septal abnormalities noted. Tympanic membranes are normal and external auditory canals are clear. Oropharynx with no redness, swelling, or masses, exudates, or evidence of obstruction, uvula midline. Mucous membranes moist. Neck: Trachea midline, no thyromegaly or masses palpated, and no cervical lymphadenopathy. Supple, full range of motion without nuchal rigidity, or vertebral point tenderness. No Meningismus. Chest/axilla: Normal chest wall appearance and motion. Nontender with no deformity. No lesions are appreciated. Cardiovascular: Regular rate and rhythm with a normal S1 and S2. No gallops, murmurs, or rubs. Normal PMI, no JVD. No pulse deficits. Respiratory: Lungs have equal breath sounds bilaterally, clear to auscultation and percussion. No rales, rhonchi or wheezes noted. No increased work of breathing, no retractions or nasal flaring. Abdomen/GI: Soft, non-tender, with normal bowel sounds. No distension or tympany. No guarding or rebound. No evidence of tenderness throughout. Back: No spinal tenderness. No costovertebral tenderness. Full range of motion. MS/ Extremity: Pulses equal, no cyanosis. Neurovascular intact. Full, normal range of motion. Neuro: Awake and alert, GCS 15, oriented to person, place, time, and situation. Cranial nerves II-XII grossly intact. Motor strength 5/5 in all extremities. Sensory grossly intact. Cerebellar exam normal. Normal gait. Psych: Awake, alert, with orientation to person, place and time. Behavior, mood, and affect are within normal limits. 16:24 Skin: Appearance: normal except for affected area, diaphoresis is noted, tearful, apprehensive, injury, puncture(s), that are deep, of the right foot, plantar puncture wound with retained foreign body. Vital Signs: 16:04 BP 112 / 79; Pulse 97; Resp 18; Temp 98.1; Pulse Ox 100% ; Weight 53.98 kg; Height 5 ph ft. 8 in. (172.72 cm); 16:04 Body Mass Index 18.09 (53.98 kg, 172.72 cm) ph Procedures: 18:46 I \T\ D: Incision and drainage was performed for an abscess of the right right foot snw Prepped with hibiclens. Anesthetized with 5 ml's 1% Lidocaine. marcaine. Incised with #11 blade. Foreign Body Removal: from the right right foot, by incising to remove, Dressinx4s were used to dress the wound, The patient tolerated the removal well. MDM: 16:00 Patient medically screened. snw 18:50 Data reviewed: vital signs, nurses notes. Data interpreted: Pulse oximetry: on room air snw is 100 %. Interpretation: normal. Counseling: I had a detailed discussion with the patient and/or guardian regarding: the historical points, exam findings, and any diagnostic results supporting the discharge/admit diagnosis, radiology results, the need for outpatient follow up, to return to the emergency department if symptoms worsen or persist or if there are any questions or concerns that arise at home. Response to treatment: the patient's symptoms have markedly improved after treatment. Special discussion: I discussed in detail with the patient the higher chance of wound infection based on his presenting history. Based on the history and exam findings, there is no indication for further emergent testing or inpatient evaluation. I discussed with the patient/guardian the need to see the primary care provider for further evaluation of the symptoms. 03/22 16:23 Order name: Foot Right 3 View XRAY; Complete Time: 18:38 snw 03/22 17:30 Order name: Suture Tray at Bedside; Complete Time: 18:41 snw Administered Medications: 16:22 Drug: Valium (diazepam) 5 mg Route: PO; ph 19:29 Follow up: Response: No adverse reaction ph 16:22 Drug: Lidocaine Gel 2 % 1 application Route: Mucous Membrane; ph 19:29 Follow up: Response: No adverse reaction ph 18:15 Drug: Marcaine (bupivacaine) (0.25 %) 1 vials Route: Infiltration; ph 19:30 Follow up: Response: No adverse reaction ph 18:18 Drug: Lidocaine (2 %) 1 vials Volume: 5 ml; Route: Infiltration; ph 19:31 Follow up: Response: No adverse reaction ph 19:16 Drug: Tetanus-Diphtheria Toxoid Adult 0.5 ml {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 Exp: ph 12/12/2023. Lot #: [id number]. } Route: IM; Site: left deltoid; 19:29 Follow up: Response: No adverse reaction ph 19:17 Drug: Zithromax (azithromycin) 500 mg Route: PO; ph 19:30 Follow up: Response: No adverse reaction ph 19:25 Drug: Amoxicillin 875 mg Route: PO; lp1 19:36 Follow up: Response: Medication administered at discharge. lp1 19:35 Not Given (Physician Discretion): Augmentin (Amoxicillin-Clavulanate) 500 mg PO once lp1 19:35 Drug: Valium (diazepam) 5 mg Route: PO; lp1 19:35 Follow up: Response: Medication administered at discharge. lp1 Disposition: 22:07 Co-signature as Attending Physician, Da Albarran DO I agree with the assessment and ms3 plan of care. Disposition Summary: 03/22/22 18:48 Discharge Ordered Location: Home snw Condition: Stable snw Diagnosis - Puncture wound with foreign body, right foot - removed snw Followup: snw - With: Emergency Department - When: As needed - Reason: Worsening of condition Followup: snw - With: Jorje Reynaga MD - When: 2 - 3 days - Reason: Recheck today's complaints, Continuance of care, Re-evaluation by your physician Discharge Instructions: - Discharge Summary Sheet snw - Puncture Wound snw - Wound Care, Adult snw - Skin Foreign Body snw Forms: - Medication Reconciliation Form snw - Thank You Letter snw - Antibiotic Education snw - Prescription Opioid Use snw Prescriptions: - Augmentin 875-125 mg Oral Tablet - take 1 tablet by ORAL route every 12 hours for 10 days; 20 tablet; Refills: 0, snw Product Selection Permitted - Diclofenac Sodium 75 mg Oral Tablet Sustained Release - take 1 tablet by ORAL route 2 times per day; 30 tablet; Refills: 0, Product snw Selection Permitted - Zithromax 500 mg Oral Tablet - take 1 tablet by ORAL route once daily for 5 days; 5 tablet; Refills: 0, snw Product Selection Permitted Signatures: Dispatcher [employer] EDMS Laury, Katlyn, CHILD NUTRITION ASSISTANT-C CHILD NUTRITION ASSISTANT-Csnw Doris Traylor, RN RN lp1 Martita Braswell RN RN ph Da Albarran, DO [place] ms3
--- NOTE | 2022-03-22 18:48 | ER ---
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 Coronavirus screen: Vaccine status: Patient reports being unvaccinated. Ebola Screen: No symptoms or risks identified at this time. Initial Sepsis Screen: Does the patient meet any 2 criteria? No. Patient's initial sepsis screen is negative. Does the patient have a suspected source of infection? No. Patient's initial sepsis screen is negative. Risk Assessment: Do you want to hurt yourself or someone else? Patient reports no desire to harm self or others. Onset of symptoms. 16:04 Method Of Arrival: Wheelchair ph 16:04 Acuity: CIARAN 4 ph Triage Assessment: 16:12 General: Appears in no apparent distress. uncomfortable, Behavior is cooperative, ph anxious. Pain: Complains of pain in right foot. Neuro: Level of Consciousness is awake, alert, obeys commands, Oriented to person, place, time, situation. Historical: - Allergies: 16:11 Ciprofloxacin; ph - PMHx: 16:11 Migraines; TMJ; ph - PSHx: 16:11 Total abdominal hysterectomy; ph - Immunization history:: Last tetanus immunization: unknown. - Social history:: Smoking status: Reported history of juuling and/or vaping. Screenin:31 Abuse screen: Denies threats or abuse. Denies injuries from another. Nutritional ph screening: No deficits noted. Tuberculosis screening: No symptoms or risk factors identified. Fall Risk None identified. Assessment: 19:20 Reassessment: Wound noted to ball of right foot after splinter removal by Provider. lp1 19:20 General: Appears in no apparent distress. Behavior is anxious. lp1 19:20 Neuro: Level of Consciousness is awake, alert, obeys commands. Cardiovascular: lp1 Patient's skin is warm and dry. Respiratory: Respiratory effort is even, unlabored. 19:29 General: SEE TRIAGE ASSESSMENT. ph Vital Signs: 16:04 BP 112 / 79; Pulse 97; Resp 18; Temp 98.1; Pulse Ox 100% ; Weight 53.98 kg; Height 5 ph ft. 8 in. (172.72 cm); 16:04 Body Mass Index 18.09 (53.98 kg, 172.72 cm) ph ED Course: 15:00 Patient arrived in ED. mr 15:00 Jorje Reynaga MD is Private Physician. mr 15:22 [facility]lyn Schaeffer [facility]-C [facility]. snw 15:22 Da Albarran DO is Attending Physician. snw 16:10 Triage completed. ph 16:12 Arm band placed on Patient placed in waiting room, Patient notified of wait time. ph 16:23 Martita Braswell RN is Primary Nurse. ph 18:03 Foot Right 3 View XRAY In Process Unspecified. EDMS 18:15 removal of splinter from R foot. ph 18:47 Jorje Reynaga MD is Referral Physician. snw 19:06 Primary Nurse role handed off by Martita Braswell, VEL mw2 19:16 Martita Braswell RN is Primary Nurse. ph 19:29 Patient did not have IV access during this emergency room visit. ph 19:32 Patient has correct armband on for positive identification. Bed in low position. Call ph light in reach. Side rails up X 1. Door closed. Noise minimized. 19:35 Wound care: located on ball of right foot was dressed with Neosporin, 4x4's, foam tape, lp1 JUDI wrap. Administered Medications: 16:22 Drug: Valium (diazepam) 5 mg Route: PO; ph 19:29 Follow up: Response: No adverse reaction ph 16:22 Drug: Lidocaine Gel 2 % 1 application Route: Mucous Membrane; ph 19:29 Follow up: Response: No adverse reaction ph 18:15 Drug: Marcaine (bupivacaine) (0.25 %) 1 vials Route: Infiltration; ph 19:30 Follow up: Response: No adverse reaction ph 18:18 Drug: Lidocaine (2 %) 1 vials Volume: 5 ml; Route: Infiltration; ph 19:31 Follow up: Response: No adverse reaction ph 19:16 Drug: Tetanus-Diphtheria Toxoid Adult 0.5 ml {Learning Administrator: Popul[employer]. Exp: ph 12/12/2023. Lot #: [id number]. } Route: IM; Site: left deltoid; 19:29 Follow up: Response: No adverse reaction ph 19:17 Drug: Zithromax (azithromycin) 500 mg Route: PO; ph 19:30 Follow up: Response: No adverse reaction ph 19:25 Drug: Amoxicillin 875 mg Route: PO; lp1 19:36 Follow up: Response: Medication administered at discharge. lp1 19:35 Not Given (Physician Discretion): Augmentin (Amoxicillin-Clavulanate) 500 mg PO once lp1 19:35 Drug: Valium (diazepam) 5 mg Route: PO; lp1 19:35 Follow up: Response: Medication administered at discharge. lp1 Medication: 19:31 Vaccine Information Statement (VIS) provided today. Questions and/or concerns ph addressed. VIS edition date: March 13, 2021. Outcome: 18:48 Discharge ordered by MD. snw 19:35 Discharged to home via wheelchair, with family. lp1 19:35 Condition: good 19:35 Discharge instructions given to patient, Instructed on discharge instructions, follow up and referral plans. medication usage, wound care, Demonstrated understanding of instructions, follow-up care, medications, wound care, Prescriptions given X 3. 19:36 Patient left the ED. 1 Signatures: Dispatcher [employer] EDMS Katlyn Schaeffer, SHIMA CUPOLA MELTING SUPERVISOR-Yani AlexPhoebe Doris Traylor, RN RN lp1 Martita Braswell RN RN Lopez Banks mw2 Corrections: (The following items were deleted from the chart) 03/23 03:25 08 19:20 Reassessment: Wound noted to ball of right foot after splinter removal by lp1 Provider lp1
[2022-03-22] MEDS ORDERED: AMOX/K CLAV 875 MG TAB ONE (19:20)
[2022-03-22 21:08] VITALS: BP 112/79; TEMP 98.1; O2SAT 100
== END 2022-03-22 19:36 | disposition home or self-care (01) ==
LOC: ER 14:57
PROC: 0JCQ3ZZ Extirpation of Matter from Right Foot Subcutaneous Tissue and Fascia, Percutaneous Approach (ICD-10-PCS; principal; 2022-03-22)
PROC: 0H9MXZZ Drainage of Right Foot Skin, External Approach (ICD-10-PCS; 2022-03-22)
DX: S91.341A Puncture wound with foreign body, right foot, initial encounter (principal); Z23 Encounter for immunization; Z88.3 Allergy status to other anti-infective agents
CPT/HCPCS: 90471; 90714; 99284

== ENCOUNTER 2023-12-01 20:04 | Emergency (ER) | payer BC ==
--- OUTSIDE RECORDS SUMMARY | 2023-12-01 20:08 | XMS REPORT | Continuity of Care Document ---
Author Name Unknown Address [address] [facility] [place] [address] [facility] Address [address] [facility] [address] [place] [address] Care Team Providers Care Senior Electrical Designer Name Role Phone Vaughn Delarosa MD Primary Care Physician [phone] Vaughn Delarosa MD Attending Clinician [phone] Nunu Miranda Attending Clinician [phone] NUNU RODRIGUEZ Attending Clinician Unavailable AURORA_Angélica Attending Clinician Unavail able Dax Lieberman Attending Clinician Unavailable ARMANI GILL Attending Clinician Unavailable ARMANI GILL Attending Clinician Unavailable BRIGIDO MCDANIEL Attending Clinician Unavailable Doctor Unassigned, [place] Attending Clinician U navailable Brigido Whitney Attending Clinician [phone] Chucky Rodrigez MD Attending Clinician [phone] CHUCKY RODRIGEZ Attending Clinician Unavailable LEIGH ANN GEE Attending Clinician UnavailFRANSISCA Fernandez Attending Clinician Unavailable Fransisca Tapia MD Attending Clinician [phone] Lab, Ang - Db Attending Clinician Unavailable GENA BAIRES Attending Clinician Unavailable Gena Conklin Attending Clinician [phone] VAUGHN DELAROSA Attending Clinician Unavailable Clinic, [facility] Endocrine Attending Clinician [phone] Devika MANCUSO, Val Attending Clinician +- [phone] VAL FORTUNE Attending Clinician Unavaila ble Unknown, Attending Attending Clinician Unavailab DEION Mata Attending Clinician Karey RIKA Stiles Attending Clinician Unavailable Brad KINGSTON, Rika Attending Clinician [phone] Agueda Medrano MD Attending Clinician + [phone] KODI LONG Attending Clinician Unavailable Ebrahim [employer] FARMER, Kodi Attending Clinician [phone] Nurse, [facility] Attending Clinician Un available Team, [facility] Health Maintenance Attending Clinicia n Unavailable Holden Chau MD Attending Clinician [phone] HOLDEN CHAU Attending Clinician Unavail able HOLDEN CHAU Attending Clinician Unavail able Abhijit [employer] FARMER, Yudinesha Attending Clinician [phone] Provider, [facility] Attending Clinician Un available Ijeoma Conrad Attending Clinician [phone] IJEOMA CASAS Attending Clinician Unavailable Lab, [facility] Attending Clinician Unavailab Bola James MD Attending Clinician [phone] [facility] Attending Clinician Unav AGUEDA Vázquez Attending Clinician Adriano MANCUSO, Tracy Attending Clinician [phone] AURORA_Angélica Admitting Clinician Unavail able AIRAM GLEASON Admitting Clinician Unavailable FRANSISCA TAPIA Admitting Clinician Unavailable Fransisca Tapia MD Admitting Clinician [phone] ARMANI GILL Admitting Clinician Unavailable Payers Payer Name Policy Type Policy Number Effective Date Expirati on Date Source [place] [id number] 2021 00:00:00 Problems Condition Name Condition Details Condition Category Status Onset Date Resolution Date Last Treatment Date Treating Clinician Comments Source Chronic migraine without aura with status migrainosu s, not intractabl e Chronic migraine without aura with status migrainosu s, not intractabl e Disease Active 12-22 00:00: 00 [facility] Syncope and collapse Syncope and collapse Disease Active 12-22 00:00: 00 [facility] Anxiety disorder due to general medical condition with panic attack Anxiety disorder due to general medical condition with panic attack Disease Active 12-22 00:00: 00 [facility] Rectal bleeding Rectal bleeding Disease Active 09-24 00:00: 00 Overview: Formattin g of this note might be different from the original. 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 Disease Active 12-04 00:00: 00 [facility] Nausea Nausea Disease Active 12-04 00:00: 00 [facility] Severe headache Severe headache Disease Active 12-04 00:00: 00 [facility] Non-intrac table vomiting with nausea, unspecifie d vomiting type Non-intrac table vomiting with nausea, unspecifie d vomiting type Disease Active 12-04 00:00: 00 [facility] Chronic back pain Chronic back pain Disease Active 2014-08 00:00: 00 [facility] Anxiety Anxiety Disease Active 2014-08 00:00: 00 [facility] Migraine equivalent syndrome Migraine equivalent syndrome Disease Active 2014-08 00:00: 00 [facility] Allergies, Adverse Reactions, Alerts Allergy Name Allergy Type Status Severity Reaction(s) Onset Date Inactive Date Treating Clinician Comments Source ciproflo xacin DA Active MO RASH, VOMITING, CRAMPS 2016-08 00:00: 00 [facility] CIPROFLO XACIN DRUG INGREDI Active Unknown-Cmnt 2014-08 00:00: 00 [facility] Ciproflo xacin Propensi ty to adverse reaction s Active Unknown - See comments 2014-08 00:00: 00 [facility] Social History Social Habit Start Date Stop Date Quantity Comments Source Gender identity [facility] Sexual orientation [facility] History of Social function 2023-11-14 00:00:00 2023-11-14 00:00:00 [facility] Alcohol intake 2023-11-14 00:00:00 2023-11-14 00:00:00 .43 /d [facility] Exposure to SARS-CoV-2 (event) 2023-01-28 00:00:00 2023-02-07 06:59:00 Not sure [facility] Cigarettes smoked current (pack per day) - Reported 2022-03-22 00:00:00 2022-03-22 00:00:00 [facility] Cigarette pack-years 2022-03-22 00:00:00 2022-03-22 00:00:00 [facility] Tobacco use and exposure 2022-03-22 00:00:00 2022-03-22 00:00:00 Smokeless tobacco non-user [facility] History of tobacco use 2010 00:00:00 Cigarette Smoker [facility] Sex Assigned At 1970 00:00:00 1970 00:00:00 [facility] Smoking Status Start Date Stop Date Source Ex-smoker 2022-03-22 00:00:00 2022-03-22 00:00:00 [facility] Medications Ordered Medication Name Filled Medication Name Start Date Stop Date Current Medication? Ordering Clinician Indication Dosage Frequency Signature (SIG) Comments Components Source GABAPENTIN 400 mg capsule 11-27 00:00: 00 Yes [id number] TAKE 1 CAPSULE BY MOUTH IN THE MORNING AND 1 CAPSULE AT NOON AND 1 CAPSULE IN THE EVENING [facility] rizatriptan 10 mg disintegrat ing tablet 11-15 00:00: 00 Yes [id number] May repeat in 2 hours if needed. Max dose 20mg in 24hrs. [facility] ketorolac (TORADOL) injection 30 mg 11-13 18:00: 00 11-13 17:25 :00 No [id number] 30mg 30 mg, Intramuscu lar, ONCE, 1 dose, On Tue11/14/23 at 1300, Routine [facility] proMETHazin e (PHENERGAN) injection 12.5 mg 11-13 18:00: 00 11-13 17:24 :00 No [id number] 12.5mg 12.5 mg, Intramuscu lar, ONCE, 1 dose, On Tue11/14/23 at 1300, Routine
Does the patient have PO or IV access? No [facility] proMETHazin e 12.5 mg tablet 11-13 00:00: 00 Yes [id number] 12.5mg Take 1 tablet by mouth every 4 (four) hours as needed for Nausea and Vomiting (N/V). [facility] ketorolac 10 mg tablet 11-13 00:00: 00 Yes [id number] 10mg Take 1 tablet by mouth every 6 (six) hours as needed for Pain (scale 4-6). [facility] rizatriptan 10 mg disintegrat ing tablet 11-13 00:00: 00 11-15 00:00 :00 No [id number] May repeat in 2 hours if needed. Do not exceed 2 doses in any 24 period. [facility] GABAPENTIN 400 mg capsule 08-31 00:00: 00 11-27 00:00 :00 No [id number] TAKE 1 CAPSULE BY MOUTH IN THE MORNING AND 1 CAPSULE AT NOON AND 1 CAPSULE IN THE EVENING [facility] GABAPENTIN 400 mg capsule 2022-08 00:00: 00 08-31 00:00 :00 No [id number] TAKE 1 CAPSULE BY MOUTH IN THE MORNING AND AT NOON AND IN THE EVENING [facility] GABAPENTIN 400 mg capsule 05-02 00:00: 00 06-29 00:00 :00 No [id number] TAKE 1 CAPSULE BY MOUTH IN THE MORNING AND AT NOON AND IN THE EVENING [facility] GABAPENTIN 400 mg capsule 03-08 00:00: 00 05-02 00:00 :00 No [id number] TAKE 1 CAPSULE BY MOUTH IN THE MORNING AND AT NOON AND IN THE EVENING [facility] TIZANIDINE 4 mg tablet 7-10 00:00: 00 Yes [id number] TAKE 1 TABLET BY MOUTH EVERY 8 HOURS NEEDED FOR MODERATE PAIN [facility] KETOROLAC 10 mg tablet 5-31 00:00: 00 11-13 00:00 :00 No [id number] TAKE 1 TABLET BY MOUTH EVERY 6 HOURS NEEDED FOR PAIN [facility] GABAPENTIN 400 mg capsule 525 00:00: 00 03-08 00:00 :00 No [id number] TAKE 1 CAPSULE BY MOUTH IN THE MORNING AND AT NOON AND IN THE EVENING [facility] clostridium botulinum toxin (BOTOX) injection 200 Units 12-22 16:30: 00 12-22 16:35 :00 No [id number] 200U [facility] rizatriptan 10 mg disintegrat ing tablet 12-22 00:00: 00 11-13 00:00 :00 No [id number] May repeat in 2 hours if needed. Do not exceed 2 doses in any 24 period. [facility] proMETHazin e 12.5 mg tablet 12-22 00:00: 00 11-13 00:00 :00 No [id number] 12.5mg Take 1 tablet by mouth every 4 (four) hours as needed for Nausea and Vomiting (N/V). [facility] TIZANIDINE 4 mg tablet 17 00:00: 00 02-14 00:00 :00 No [id number] TAKE 1 TABLET BY MOUTH EVERY 8 HOURS NEEDED FOR MODERATE PAIN [facility] rizatriptan 10 mg disintegrat ing tablet 12-01 00:00: 00 12-22 00:00 :00 No [id number] May repeat in 2 hours if needed. Do not exceed 2 doses in any 24 period. [facility] RIZATRIPTAN 10 mg disintegrat ing tablet 4-20 00:00: 00 12-01 00:00 :00 No [id number] TAKE 1 TABLET BY MOUTH EVERY DAY NEEDED FOR HEADACHE, MAY REPEAT IN 2 HOURS IF NEEDED [facility] GABAPENTIN 400 mg capsule 11-01 00:00: 00 12-30 00:00 :00 No [id number] TAKE 1 CAPSULE BY MOUTH IN THE MORNING AND AT NOON AND IN THE EVENING [facility] water for irrigation irrigation solution 10-27 15:04: 10-27 16:26 :19 No PRN, Starting on Tue10/27/22 at 1004, Until Tue10/27/22 at 1126, Routine, Intra-op [facility] simethicone (GAS RELIEF (SIMETHICON E)) 40 mg/0.6 mL drops 10-27 15:04: 10-27 16:26 :19 No PRN, Starting on Tue10/27/22 at 1004, Until Tue10/27/22 at 1126, Routine, Intra-op [facility] lactated ringers IV infusion 1,000 mL 10-27 13:30: 00 10-27 13:34 :00 No 1000mL at 42 mL/hr, 1,000 mL, IV Infusion, ONCE, 1 dose, On Tue10/27/22 at 0830, Routine, DSU Pre-op [facility] proMETHazin e (PHENERGAN) injection 25 mg 10-12 23:00: 00 10-12 22:41 :00 No [id number] 25mg [facility] ketorolac (TORADOL) injection 30 mg 10-12 23:00: 00 10-12 22:34 :00 No [id number] 30mg [facility] rizatriptan 10 mg disintegrat ing tablet 10-12 00:00: 00 11-25 00:00 :00 No TAKE 1 TABLET BY MOUTH EVERY DAY NEEDED FOR HEADACHE, MAY REPEAT IN 2 HOURS IF NEEDED [facility] TIZANIDINE 4 mg tablet 10-07 00:00: 12-22 00:00 :00 No [id number] TAKE 1 TABLET BY MOUTH EVERY 8 HOURS NEEDED FOR MODERATE PAIN [facility] rizatriptan 10 mg disintegrat ing tablet 09-28 00:00: 10-12 00:00 :00 No [id number] TAKE 1 TABLET BY MOUTH EVERY DAY NEEDED FOR HEADACHE, MAY REPEAT IN 2 HOURS IF NEEDED [facility]-electro lyte soln 236-22.74-6 .74 -5.86 gram solution 09-24 00:00: 09-25 05:59 :00 No 4000mL Take 4,000 mL by mouth once now for 1 dose. [facility] tiZANidine 4 mg tablet 09-08 00:00: 10-07 00:00 :00 No [id number] TAKE 1 TABLET BY MOUTH EVERY 8 HOURS NEEDED FOR MODERATE PAIN [facility] rizatriptan 10 mg disintegrat ing tablet 09-08 00:00: 09-28 00:00 :00 No [id number] TAKE 1 TABLET BY MOUTH NEEDED FOR HEADACHE. MAY REPAET IN 2 HOURS IF NEEDED [facility] acetaminoph en-codeine (TYLENOL-CO DEINE #3) 300-30 mg tablet 09-08 00:00: 00 09-16 05:59 :00 No [id number] 2{tbl} Take 2 tablets by mouth every 4 (four) hours as needed for Pain (scale 7-10) for up to 7 days. Indication s: acute pain [facility] ketorolac (TORADOL) injection 30 mg 09-06 19:00: 00 09-06 18:10 :00 No [id number] 30mg [facility] ondansetron (ZOFRAN-ODT ) disintegrat ing tablet 8 mg 09-06 19:00: 00 09-06 18:09 :21 No [id number] 8mg [facility] proMETHazin e (PHENERGAN) injection 25 mg 09-06 19:00: 00 09-06 18:14 :00 No [id number] 25mg [facility] diphenhydrA MINE (BENADRYL) 12.5 mg/5 mL solution 25 mg 09-06 18:45: 00 09-06 18:09 :17 No [id number] [facility] rizatriptan 10 mg disintegrat ing tablet 09-06 00:00: 00 09-08 00:00 :00 No [id number] TAKE 1 TABLET BY MOUTH NEEDED FOR HEADACHE. MAY REPAET IN 2 HOURS IF NEEDED [facility] gabapentin 400 mg capsule 08-17 00:00: 00 11-01 00:00 :00 No [id number] 400mg Take 1 capsule by mouth in the morning and 1 capsule at noon and 1 capsule in the evening. [facility] TIZANIDINE 4 mg tablet 2021-08 00:00: 09-08 00:00 :00 No [id number] TAKE 1 TABLET BY MOUTH EVERY 8 HOURS NEEDED FOR MODERATE PAIN [facility] rizatriptan 10 mg disintegrat ing tablet 2021-08 00:00: 00 09-06 00:00 :00 No [id number] TAKE 1 TABLET BY MOUTH NEEDED FOR HEADACHE. MAY REPAET IN 2 HOURS IF NEEDED [facility] rizatriptan 10 mg disintegrat ing tablet 2021-08 00:00: 00 07-19 00:00 :00 No [id number] TAKE 1 TABLET BY MOUTH NEEDED FOR HEADACHE MAY REPEAT IN 2 HOURS IF NEEDED [facility] TIZANIDINE 4 mg tablet 2021-08 00:00: 00 07-19 00:00 :00 No [id number] TAKE 1 TABLET BY MOUTH EVERY 8 HOURS NEEDED FOR MODERATE PAIN [facility] RIZATRIPTAN 10 mg disintegrat ing tablet 2021-08- 00:00: 00 06-29 00:00 :00 No [id number] TAKE ONE TABLET BY MOUTH NEEDED FOR HEADACHE MAY REPEAT IN 2 HOURS IF NEEDED [facility] GABAPENTIN 400 mg capsule 2021-08 0-31 00:00: 00 08-17 00:00 :00 No [id number] TAKE 1 CAPSULE BY MOUTH THREE TIMES DAILY [facility] rizatriptan 10 mg disintegrat ing tablet 2021-08 0-06 00:00: 00 06-16 00:00 :00 No [id number] TAKE ONE TABLET BY MOUTH NEEDED FOR HEADACHE MAY REPEAT IN 2 HOURS IF NEEDED [facility] tiZANidine 4 mg tablet 05-04 00:00: 00 06-16 00:00 :00 No [id number] TAKE 1 TABLET BY MOUTH EVERY 8 HOURS NEEDED FOR MODERATE PAIN [facility] rizatriptan 10 mg disintegrat ing tablet 04-30 00:00: 00 05-13 00:00 :00 No [id number] May repeat in 2 hours if needed [facility] ketorolac (TORADOL) injection 30 mg 04-28 18:45: 00 04-28 17:51 :00 No [id number] 30mg [facility] proMETHazin e (PHENERGAN) injection 25 mg 04-28 18:45: 00 04-28 17:52 :00 No [id number] 25mg [facility] Promethazin e HCl, Bulk, 100 % Powd 04-28 00:00: 00 Yes [id number] APPLY 0.2ML (25MG) TO WRIST EVERY 4 HOURS NEEDED FOR NAUSEA [facility] Promethazin e HCl, Bulk, 100 % Powd 04-28 00:00: 00 Yes [id number] APPLY 0.2ML (25MG) TO WRIST EVERY 4 HOURS NEEDED FOR NAUSEA [facility] RIZATRIPTAN 10 mg disintegrat ing tablet 04-16 00:00: 00 04-30 00:00 :00 No [id number] DISSOLVE 1 TABLET ON THE TONGUE EVERY DAY NEEDED FOR MIGRAINE HEADACHE [facility] GABAPENTIN 400 mg capsule 8-29 00:00: 00 06-07 00:00 :00 No [id number] TAKE 1 CAPSULE BY MOUTH THREE TIMES DAILY [facility] RIZATRIPTAN 10 mg disintegrat ing tablet 8 00:00: 00 04-16 00:00 :00 No [id number] DISSOLVE 1 TABLET ON THE TONGUE EVERY DAY NEEDED FOR MIGRAINE HEADACHE [facility] TIZANIDINE 4 mg tablet 8 00:00: 00 05-04 00:00 :00 No [id number] TAKE 1 TABLET BY MOUTH EVERY 8 HOURS NEEDED FOR MODERATE PAIN [facility] RIZATRIPTAN 10 mg disintegrat ing tablet 03-01 00:00: 00 04-01 00:00 :00 No [id number] DISSOLVE 1 TABLET ON THE TONGUE EVERY DAY NEEDED FOR MIGRAINE HEADACHE [facility] RIZATRIPTAN 10 mg disintegrat ing tablet 7 00:00: 00 03-01 00:00 :00 No [id number] DISSOLVE 1 TABLET ON THE TONGUE EVERY DAY NEEDED FOR MIGRAINE HEADACHE [facility] GABAPENTIN 400 mg capsule 7-05 00:00: 00 04-05 00:00 :00 No [id number] TAKE 1 CAPSULE BY MOUTH THREE TIMES DAILY [facility] RIZATRIPTAN 10 mg disintegrat ing tablet 02-01 00:00: 00 02-10 00:00 :00 No [id number] DISSOLVE 1 TABLET ON THE TONGUE EVERY DAY NEEDED FOR MIGRAINE HEADACHE [facility] RIZATRIPTAN 10 mg disintegrat ing tablet 6- 00:00: 00 02-01 00:00 :00 No [id number] DISSOLVE 1 TABLET ON THE TONGUE EVERY DAY NEEDED FOR MIGRAINE HEADACHE [facility] rizatriptan 10 mg disintegrat ing tablet 5-20 00:00: 00 01-07 00:00 :00 No [id number] DISSOLVE 1 TABLET ON THE TONGUE EVERY DAY NEEDED FOR MIGRAINE HEADACHE [facility] tiZANidine 4 mg tablet 5-09 00:00: 00 03-08 00:00 :00 No [id number] 4mg Take 1 tablet by mouth every 8 (eight) hours as needed for Pain (scale 4-6). [facility] riz[facility]riptan 10 mg disintegrat ing tablet 4-26 00:00: 00 12-25 00:00 :00 No [id number] DISSOLVE 1 TABLET ON THE TONGUE EVERY DAY NEEDED FOR MIGRAINE HEADACHE [facility] rizatriptan 10 mg disintegrat ing tablet 3-16 00:00: 00 12-01 00:00 :00 No [id number] TAKE 1 TABLET BY MOUTH QD NEEDED FOR MIGRAINE HEADACHE [facility] Ketorolac Tromethamin e (TORADOL) injection syringe 60 mg 09-24 21:30: 00 09-24 20:46 :00 No [id number] 60mg [facility] proMETHazin e (PHENERGAN) injection 25 mg 09-24 21:30: 00 09-24 20:50 :00 No [id number] 25mg [facility] rizatriptan 10 mg disintegrat ing tablet 1-10 00:00: 00 Yes [id number] TAKE 1 TABLET BY MOUTH QD NEEDED FOR MIGRAINE HEADACHE [facility] ketorolac 10 mg tablet 1-10 00:00: 00 01-05 00:00 :00 No [id number] TAKE 1 TABLET BY MOUTH EVERY 6 HOURS NEEDED FOR PAIN [facility] tiZANidine 4 mg tablet 1-10 00:00: 00 12-11 00:00 :00 No [id number] 4mg Take 1 tablet by mouth every 8 (eight) hours as needed for Pain (scale 4-6). [facility] GABAPENTIN 400 mg capsule 2020-08 00:00: 00 02-09 00:00 :00 No [id number] TAKE 1 CAPSULE BY MOUTH THREE TIMES DAILY [facility] methylPREDN ISolone (MEDROL, KAYA,) 4 mg tablets 7-24 00:00: 00 10-27 00:00 :00 No [id number] Take by mouth SEE-INSTRU CTIONS. follow package directions [facility] bromphenira mine-pseudo ephedrine-D M (BROMFED DM) 2-30-10 mg/5 mL syrup 02-23 00:00: 00 10-27 00:00 :00 No [id number] 5mL Take 5 mL by mouth 4 (four) times daily as needed for Congestion /Allergies . [facility] benzonatate 100 mg capsule 02-23 00:00: 00 10-27 00:00 :00 No [id number] 200mg Take 2 capsules by mouth 2 (two) times daily as needed for Cough. [facility] albuterol 90 mcg/actuati on inhaler 02-23 00:00: 00 10-27 00:00 :00 No [id number] 2{puff} Inhale 2 Puffs every 6 (six) hours as needed for Wheezing or Shortness of Breath. [facility] acyclovir 5 % ointment 2017-08 0- 00:00: 00 10-27 00:00 :00 No Apply to area(s) 5 (five) times daily. [facility] Immunizations Ordered Immunization Name Filled Immunization Name Date Status Comments Source DTAP 2022-03-08 00:00:00 Completed [facility] DTAP 2022-03-08 00:00:00 Completed [facility] DTAP 2022-03-08 00:00:00 Completed [facility] DTAP 2022-03-08 00:00:00 Completed [facility] DTAP 2022-03-08 00:00:00 Completed [facility] DTAP 2022-03-08 00:00:00 Completed [facility] DTAP 2022-03-08 00:00:00 Completed [facility] DTAP 2022-03-08 00:00:00 Completed [facility] DTAP 2022-03-08 00:00:00 Completed [facility] DTAP 2022-03-08 00:00:00 Completed [facility] DTAP 2022-03-08 00:00:00 Completed [facility] DTAP 2022-03-08 00:00:00 Completed [facility] DTAP 2022-03-08 00:00:00 Completed [facility] DTAP 2022-03-08 00:00:00 Completed [facility] DTAP 2022-03-08 00:00:00 Completed [facility] DTAP 2022-03-08 00:00:00 Completed [facility] DTAP 2022-03-08 00:00:00 Completed [facility] DTAP 2022-03-08 00:00:00 Completed [facility] DTAP 2022-03-08 00:00:00 Completed [facility] DTAP 2022-03-08 00:00:00 Completed [facility] DTAP 2022-03-08 00:00:00 Completed [facility] DTAP 2022-03-08 00:00:00 Completed [facility] DTAP 2022-03-08 00:00:00 Completed [facility] DTAP 2022-03-08 00:00:00 Completed [facility] DTAP 2022-03-08 00:00:00 Completed [facility] DTAP 2022-03-08 00:00:00 Completed [facility] DTAP 2022-03-08 00:00:00 Completed [facility] DTAP 2022-03-08 00:00:00 Completed [facility] DTAP 2022-03-08 00:00:00 Completed [facility] DTAP 2022-03-08 00:00:00 Completed [facility] DTAP 2022-03-08 00:00:00 Completed [facility] DTAP 2022-03-08 00:00:00 Completed [facility] DTAP 2022-03-08 00:00:00 Completed [facility] DTAP Unknown Completed [facility] DTAP Unknown Completed [facility] DTAP Unknown Completed [facility] DTAP Unknown Completed [facility] DTAP Unknown Completed [facility] DTAP Unknown Completed [facility] DTAP Unknown Completed [facility] DTAP Unknown Completed [facility] DTAP Unknown Completed [facility] DTAP Unknown Completed [facility] DTAP Unknown Completed [facility] DTAP Unknown Completed [facility] DTAP Unknown Completed [facility] Vital Signs Vital Name Observation Time Observation Value Comments Lisandro rose Systolic blood pressure 2023-11-14 17:05:00 110 mm[Hg] [facility] Diastolic blood pressure 2023-11-14 17:05:00 76 mm[Hg] [facility] Heart rate 2023-11-14 16:51:00 84 /min [facility] Body temperature 2023-11-14 16:51:00 37 Adele [facility] Respiratory rate 2023-11-14 16:51:00 18 /min [facility] Body height 2023-11-14 16:51:00 172.7 cm [facility] Body weight 2023-11-14 16:51:00 56.382 kg [facility] BMI 2023-11-14 16:51:00 18.90 kg/m2 [facility] Oxygen saturation in Arterial blood by Pulse oximetry 2023-11-14 16:51:00 100 /min [facility] Systolic blood pressure 2022-12-22 16:03:00 106 mm[Hg] [facility] Diastolic blood pressure 2022-12-22 16:03:00 76 mm[Hg] [facility] Heart rate 2022-12-22 16:03:00 77 /min [facility] Body temperature 2022-12-22 16:03:00 [facility].5 [facility] [facility] Body height 2022-12-22 16:03:00 172.7 cm [facility] Body weight 2022-12-22 16:03:00 56.972 kg [facility] BMI 2022-12-22 16:03:00 19.10 kg/m2 [facility] Oxygen saturation in Arterial blood by Pulse oximetry 2022-12-22 16:03:00 100 /min [facility] Systolic blood pressure 2022-12-01 19:52:00 110 mm[Hg] [facility] Diastolic blood pressure 2022-12-01 19:52:00 72 mm[Hg] [facility] Heart rate 2022-12-01 19:52:00 91 /min [facility] Body temperature 2022-12-01 19:52:00 36.67 Ade[facility] Body height 2022-12-01 19:52:00 172.7 cm [facility] Body weight 2022-12-01 19:52:00 58.65 kg [facility] BMI 2022-12-01 19:52:00 19.66 kg/m2 [facility] Oxygen saturation in Arterial blood by Pulse oximetry 2022-12-01 19:52:00 98 /min [facility] Systolic blood pressure 2022-10-27 16:35:00 98 mm[Hg] [facility] Diastolic blood pressure 2022-10-27 16:35:00 66 mm[Hg] [facility] Heart rate 2022-10-27 16:35:00 78 /min [facility] Body temperature 2022-10-27 16:35:00 36.33 Ade[facility] Oxygen saturation in Arterial blood by Pulse oximetry 2022-10-27 16:35:00 98 /min [facility] Respiratory rate 2022-10-27 16:15:00 13 /min [facility] Body height 2022-10-19 18:00:00 172.7 cm [facility] Body weight 2022-10-19 18:00:00 57.153 kg [facility] BMI 2022-10-19 18:00:00 19.16 kg/m2 [facility] Systolic blood pressure 2022-10-27 13:28:00 109 mm[Hg] [facility] Diastolic blood pressure 2022-10-27 13:28:00 72 mm[Hg] [facility] Heart rate 2022-10-27 13:28:00 113 /min [facility] Body temperature 2022-10-27 13:28:00 36.56 [facility] Respiratory rate 2022-10-27 13:28:00 14 /min [facility] Oxygen saturation in Arterial blood by Pulse oximetry 2022-10-27 13:28:00 100 /min [facility] Body height 2022-10-19 18:00:00 172.7 cm [facility] Body weight 2022-10-19 18:00:00 57.153 kg [facility] BMI 2022-10-19 18:00:00 19.16 kg/m2 [facility] Systolic blood pressure 2022-10-12 21:43:00 122 mm[Hg] [facility] Diastolic blood pressure 2022-10-12 21:43:00 78 mm[Hg] [facility] Heart rate 2022-10-12 21:43:00 82 /min [facility] Body height 2022-10-12 21:43:00 172.7 cm [facility] Body weight 2022-10-12 21:43:00 57.153 kg [facility] BMI 2022-10-12 21:43:00 19.16 kg/m2 [facility] Oxygen saturation in Arterial blood by Pulse oximetry 2022-10-12 21:43:00 99 /min [facility] Systolic blood pressure 2022-10-04 20:17:00 116 mm[Hg] [facility] Diastolic blood pressure 2022-10-04 20:17:00 74 mm[Hg] [facility] Body height 2022-10-04 20:17:00 172.7 cm [facility] Body weight 2022-10-04 20:17:00 57.153 kg [facility] BMI 2022-10-04 20:17:00 19.16 kg/m2 [facility] Systolic blood pressure 2022-10-04 14:38:00 115 mm[Hg] [facility] Diastolic blood pressure 2022-10-04 14:38:00 77 mm[Hg] [facility] Heart rate 2022-10-04 14:38:00 78 /min [facility] Respiratory rate 2022-10-04 14:38:00 17 /min [facility] Body height 2022-10-04 14:38:00 172.7 cm [facility] weight 2022-10-04 14:38:00 57.425 [facility] BMI 2022-10-04 14:38:00 19.25 kg/m2 [facility] Oxygen saturation in Arterial blood by Pulse oximetry 2022-10-04 14:38:00 99 /min [facility] Systolic blood pressure 2022-09-17 14:05:00 109 mm[Hg] [facility] Diastolic blood pressure 2022-09-17 14:05:00 74 mm[Hg] [facility] Heart rate 2022-09-17 14:05:00 77 /min [facility] Body temperature 2022-09-17 14:05:00 36.67 Ade[facility] Respiratory rate 2022-09-17 14:05:00 18 /min [facility] Body height 2022-09-17 14:05:00 172.7 cm [facility] Body weight 2022-09-17 14:05:00 57.244 kg [facility] BMI 2022-09-17 14:05:00 19.19 kg/m2 [facility] Oxygen saturation in Arterial blood by Pulse oximetry 2022-09-17 14:05:00 99 /min [facility] Systolic blood pressure 2022-09-08 16:21:00 106 mm[Hg] [facility] Diastolic blood pressure 2022-09-08 16:21:00 70 mm[Hg] [facility] Heart rate 2022-09-08 16:21:00 95 /min [facility] Body height 2022-09-08 16:21:00 172.7 cm [facility] Body weight 2022-09-08 16:21:00 57.879 kg [facility] BMI 2022-09-08 16:21:00 19.40 kg/m2 [facility] Oxygen saturation in Arterial blood by Pulse oximetry 2022-09-08 16:21:00 99 /min [facility] Systolic blood pressure 2022-09-06 17:44:00 124 mm[Hg] [facility] Diastolic blood pressure 2022-09-06 17:44:00 83 mm[Hg] [facility] Heart rate 2022-09-06 17:44:00 107 /min [facility] Body temperature 2022-09-06 17:44:00 37.06 Adele [facility] Respiratory rate 2022-09-06 17:44:00 17 /min [facility] Body weight 2022-09-06 17:44:00 56.427 kg [facility] BMI 2022-09-06 17:44:00 18.91 kg/m2 [facility] Oxygen saturation in Arterial blood by Pulse oximetry 2022-09-06 17:44:00 100 /min [facility] Systolic blood pressure 2022-04-28 17:45:00 119 mm[Hg] [facility] Diastolic blood pressure 2022-04-28 17:45:00 83 mm[Hg] [facility] Heart rate 2022-04-28 17:43:00 99 /min [facility] Body temperature 2022-04-28 17:43:00 37.11 Adele [facility] Respiratory rate 2022-04-28 17:43:00 17 /min [facility] Body height 2022-04-28 17:43:00 172.7 cm [facility] Body weight 2022-04-28 17:43:00 55.747 kg [facility] BMI 2022-04-28 17:43:00 18.69 kg/m2 [facility] Oxygen saturation in Arterial blood by Pulse oximetry 2022-04-28 17:43:00 100 /min [facility] Heart rate 2022-03-22 21:27:00 128 /min [facility] Respiratory rate 2022-03-22 21:27:00 20 /min [facility] Oxygen saturation in Arterial blood by Pulse oximetry 2022-03-22 21:27:00 97 /min [facility] Systolic blood pressure 2021-09-24 20:16:00 120 mm[Hg] [facility] Diastolic blood pressure 2021-09-24 20:16:00 84 mm[Hg] Harvel o [facility] Body weight 2021-09-24 20:16:00 56.7 kg [facility] BMI 2021-09-24 20:16:00 19.01 kg/m2 [facility] Procedures Procedure Date / Time Performed Performing Clinician Source DISCLOSURE AND CONSENT, MEDICAL AND SURGICAL PROCEDURES 2022-12-23 05:01:00 Doctor Unassigned, [place] [facility] POCT GLUCOSE(AGE >30DAYS) 2022-12-22 17:05:00 Brigido Mcdaniel [facility] INSURANCE CORRESPONDENCE 2022-12-15 05:01:00 Doc tor Unassigned, [place] [facility] COLONOSCOPY 2022-10-27 14:47:00 Fransisca Tapia [facility] COLONOSCOPY (ENDO) 2022-10-27 12:59:02 [place] [facility] COLONOSCOPY (ENDO) 2022-10-27 12:59:02 Vaughn Delarosa [facility] DAY SURGERY - ADC 2022-10-27 05:01:00 Doctor Karey ssigned, [place] [facility] FREE T4 2022-10-18 12:54:00 Armani Gill [facility] THYROID STIMULATING HORMONE 2022-10-18 12:54:00 Armani Gill [facility] COMP. METABOLIC PANEL ([id number]) 2022-10-18 12:54:00 [facility] 2022-10-18 12:54:00 [facility] 2022-10-18 12:54:00 Armani Gill [facility] US HEAD NECK 2022-10-08 21:29:23 Armani Gill [facility] EXTERNAL PROVIDER RECORDS 2022-09-22 06:01:00 Do ctor Unassigned, [place] [facility] ASSIGNMENT OF BENEFITS 2022-09-06 17:33:39 Docto r Unassigned, [place] [facility] EXTERNAL PROVIDER RECORDS 2022-04-14 05:01:00 Do ctor Unassigned, [place] [facility] Encounters Start Date/Time End Date/Time Encounter Type Admission Type Attending Clinicians Care Facility Care Department Encounter ID Source 2023-11-25 00:00:00 2023-11-25 00:00:00 [facility] 1..840.114 350.1.13.10 4.2.7.2.686 [id number] [facility] 2023-11-17 00:00:00 2023-11-17 00:00:00 Telephone Michael Nunu [facility]NA [facility] 1.284.114 350.1.13.10 4.2.7.2.686 [id number] [facility] 2023-11-16 00:00:00 2023-11-16 00:00:00 Telephone [facility]?YANA [facility] 1.84.114 350.1.13.10 4.2.7.2.686 [id number] [facility] 2023-11-14 11:30:00 2023-11-14 12:28:19 Outpatient R MICHAEL NUNU [facility] [id number] [facility] 2023-11-14 11:30:00 2023-11-14 12:28:19 Office Visit Michael Nunu [facility]?YANA [facility] 1.84.114 350.1.13.10 4.2.7.2.686 [id number] [facility] 2023-08-31 00:00:00 2023-08-31 00:00:00 Refill [place] [facility] 1.2840.114 350.1.13.10 4.2.7.2.686 [id number] [facility] 2023-06-29 00:00:00 2023-06-29 00:00:00 Maricarmen Delarosa [facility] 1.2.840.114 350.1.13.10 4.2.7.2.686 [id number] [facility] 2023-04-30 00:00:00 2023-04-30 00:00:00 Maricarmen Delarosa [facility] 1.2.840.114 350.1.13.10 4.2.7.2.686 [id number] [facility] 2023-04-25 00:00:00 2023-04-25 00:00:00 Outpatient FOG_Jeffrey Oconnell AOSM AOSM [id number] [facility] 2023-03-30 00:00:00 2023-03-30 00:00:00 Outpatient FOG_Jeffrey Oconnell AOSM AOSM [id number] [facility] 2023-03-22 00:00:00 2023-03-22 00:00:00 Outpatient FOG_Jeffrey Kourtney AOSM AOSM [id number] [facility] 2023-03-09 00:00:00 2023-03-09 00:00:00 Outpatient FOG_Jeffrey Lyndon_ AOSM AOSM [id number] [facility] 2023-03-08 00:00:00 2023-03-08 00:00:00 Maricarmen Delarosa [facility] 1.2.840.114 350.1.13.10 4.2.7.2.686 [id number] [facility] 2023-03-04 14:24:00 2023-03-04 14:24:00 Outpatient Dax Mitchell HCAT[facility] RADI [id number] 2023-03-04 00:00:00 2023-03-04 00:00:00 Outpatient AURORA_Jeffrey asiaStefanieMejiaStefanie [facility] [id number] [facility] 2023-03-04 00:00:00 2023-03-04 00:00:00 Outpatient FOG_Jeffrey fisherMejiaStefanie [facility] [id number] [facility] 2023-02-11 00:00:00 2023-02-11 00:00:00 Maricarmen Delarosa [facility] 1.2.840.114 350.1.13.10 4.2.7.2.686 [id number] [facility] 2023-02-09 14:30:00 2023-02-09 14:30:00 Outpatient R ARMANI GILL YU [facility] [id number] [facility] 2023-01-21 10:00:00 2023-01-21 10:00:00 Outpatient BRIGIDO PICKERING [facility] [id number] [facility] 2023-01-05 00:00:00 2023-01-05 00:00:00 Maricarmen Delarosa [facility] 1.2.840.114 350.1.13.10 4.2.7.2.686 [id number] [facility] 2022-12-30 00:00:00 2022-12-30 00:00:00 [facility] 1.2.840.114 350.1.13.10 4.2.7.2.686 [id number] [facility] 2022-12-23 00:00:00 2022-12-23 00:00:00 Orders Only Doctor Unassigned, [place] [facility] 1.2.840.114 350.1.13.10 4.2.7.2.686 [id number] [facility] 2022-12-22 11:00:00 2022-12-22 12:00:00 Office Visit Violeta, [facility] 1.2.840.114 350.1.13.10 4.2.7.2.686 [id number] [facility] 2022-12-22 11:00:00 2022-12-22 11:00:00 Outpatient [facility] [id number] [facility] 2022-12-21 00:00:00 2022-12-21 00:00:00 [facility] 1.2.840.114 350.1.13.10 4.2.7.2.686 [id number] [facility] 2022-12-15 00:00:00 2022-12-15 00:00:00 Orders Only Doctor Unassigned, [place] [facility] 1.2.840.114 350.1.13.10 4.2.7.2.686 [id number] [facility] 2022-12-01 15:00:00 2022-12-01 15:40:00 Office Visit Chucky Rodrigez [facility] 1.2.840.114 350.1.13.10 4.2.7.2.686 [id number] [facility] 2022-12-01 15:00:00 2022-12-01 15:00:00 Outpatient CHUCKY SHANNON [facility] [id number] [facility] 2022-11-23 00:00:00 2022-11-23 00:00:00 Refill Delarosa, [facility] 1.840.114 350.1.13.10 4.2.7.2.686 [id number] [facility] 2022-10-31 00:00:00 2022-10-31 00:00:00 Reffausto Delarosa [facility]NA O[facility] 1.0.114 350.1.13.10 4.2.7.2.686 [id number] [facility] 2022-10-27 08:18:00 2022-10-27 11:45:00 Outpatient R FRANSISCA TAPIA [facility] [id number] [facility] 2022-10-27 08:18:00 2022-10-27 11:45:00 Hospital Encounter Regina Fransisca [facility] 1.0.114 350.1.13.10 4.2.7.2.686 [id number] [facility] 2022-10-27 09:51:00 2022-10-27 10:50:00 Surgery Regina Fransisca [facility] 1.840.114 350.1.13.10 4.2.7.2.686 [id number] [facility] 2022-10-27 00:00:00 2022-10-27 00:00:00 Orders Only Doctor Unassigned, [place] [facility] 1.2840.114 350.1.13.10 4.2.7.2.686 [id number] [facility] 2022-10-25 00:00:00 2022-10-25 00:00:00 Patient Secure Armani Erickson [facility] 1.0.114 350.1.13.10 4.2.7.2.686 [id number] [facility] 2022-10-22 00:00:00 2022-10-22 00:00:00 Patient Secure Msg Fransisca Tapia [facility] 1.114 350.1.13.10 4.2.7.2.686 [id number] [facility] 2022-10-18 07:30:00 2022-10-18 09:35:33 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, Armani Chery [facility]NA [facility] 1.114 350.1.13.10 4.2.7.2.686 [id number] [facility] 2022-10-18 07:30:00 2022-10-18 07:30:00 Outpatient R ARMNAI GILL [facility] [id number] [facility] 2022-10-12 15:00:00 2022-10-12 16:25:41 [facility] [id number] [facility] 2022-10-12 15:00:00 2022-10-12 16:25:41 [facility] 1.114 350.1.13.10 4.2.7.2.686 [id number] [facility] 2022-10-11 00:00:00 2022-10-11 00:00:00 Patient Secure g [facility] 1.114 350.1.13.10 4.2.7.2.686 [id number] [facility] 2022-10-10 00:00:00 2022-10-10 00:00:00 Refill [facility] 1.2.840.114 350.1.13.10 4.2.7.2.686 [id number] [facility] 2022-10-08 14:31:57 2022-10-08 23:59:00 Outpatient R ARMANI GILL YU [facility] [id number] [facility] 2022-10-08 14:31:57 2022-10-08 23:59:00 Hospital Encounter Armani Gill [facility] 1.0.114 350.1.13.10 4.2.7.2.686 [id number] [facility] 2022-10-06 00:00:00 2022-10-06 00:00:00 Refill [place] [facility] 1.114 350.1.13.10 4.2.7.2.686 [id number] [facility] 2022-10-04 14:30:00 2022-10-04 15:00:32 Outpatient R ARMANI GILL [facility] [id number] [facility] 2022-10-04 14:30:00 2022-10-04 15:00:32 Office Visit Armani Gill [facility] 1.114 350.1.13.10 4.2.7.2.686 [id number] [facility] 2022-10-04 08:45:00 2022-10-04 09:00:00 [facility] 1.114 350.1.13.10 4.2.7.2.686 [id number] [facility] 2022-09-28 00:00:00 2022-09-28 00:00:00 Letter (Out) Clinic, [facility] Endocrine [facility] 1.2.840.114 350.1.13.10 4.2.7.2.686 [id number] [facility] 2022-09-28 00:00:00 2022-09-28 00:00:00 Refill [place] [facility] 1.2.840.114 350.1.13.10 4.2.7.2.686 [id number] [facility] 2022-09-24 00:00:00 2022-09-24 00:00:00 Telephone Val [facility] 1.2.840.114 350.1.13.10 4.2.7.2.686 [id number] [facility] 2022-09-22 00:00:00 2022-09-22 00:00:00 Orders Only Doctor Unassigned, [place] [facility] 1.2.840.114 350.1.13.10 4.2.7.2.686 [id number] [facility] 2022-09-22 00:00:00 2022-09-22 00:00:00 Patient Secure Msg Doctor Unassigned, [place] [facility] 1.2.840.114 350.1.13.10 4.2.7.2.686 [id number] [facility] 2022-09-20 00:00:00 2022-09-20 00:00:00 Telephone [place] [facility] 1.2.840.114 350.1.13.10 4.2.7.2.686 [id number] [facility] 2022-09-17 08:00:00 2022-09-17 10:23:35 Outpatient R VAL FORTUNE [facility] [id number] [facility] 2022-09-17 08:00:00 2022-09-17 10:23:35 Office Visit Val Fortune [facility] JOHANA VERAIO NAL BUILDING 1.84.114 350.1.13.10 4.2.7.2.686 [id number] [facility] 2022-09-17 09:30:00 2022-09-17 09:45:00 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, Ang - Db Unknown, Attending [facility]?YANA [facility] 1.84.114 350.1.13.10 4.2.7.2.686 [id number] [facility] 2022-09-17 00:00:00 2022-09-17 00:00:00 Patient Secure Msg Delar[facility] 1.840.114 350.1.13.10 4.2.7.2.686 [id number] [facility] 2022-09-08 10:00:00 2022-09-08 11:11:10 Outpatient R VAUGHN DELAROSA [facility] [id number] [facility] 2022-09-08 10:00:00 2022-09-08 10:15:00 Office Visit [facility] 1.84.114 350.1.13.10 4.2.7.2.686 [id number] [facility] 2022-09-08 00:00:00 2022-09-08 00:00:00 Patient Secure Msg Doctor Unassigned, [place] [facility] 1.84.114 350.1.13.10 4.2.7.2.686 [id number] [facility] 2022-09-07 10:30:00 2022-09-07 10:30:00 Outpatient DEION GALVAN [facility] [id number] [facility] 2022-09-06 11:20:00 2022-09-06 12:20:28 Outpatient R RIKA SALINAS [facility] [id number] [facility] 2022-09-06 11:20:00 2022-09-06 12:20:28 Urgent Care BradJairoRika Unknown, Attending [facility] 1.2840.114 350.1.13.10 4.2.7.2.686 [id number] [facility] 2022-09-06 00:00:00 2022-09-06 00:00:00 Orders Only Doctor Unassigned, [place] [facility] 1.84.114 350.1.13.10 4.2.7.2.686 [id number] [facility] 2022-08-17 00:00:00 2022-08-17 00:00:00 Refill [place] Vaughn [facility] 1.840.114 350.1.13.10 4.2.7.2.686 [id number] [facility] 2022-07-18 00:00:00 2022-07-18 00:00:00 Refill [place] Vaughn [facility] 1.84.114 350.1.13.10 4.2.7.2.686 [id number] [facility] 2022-07-18 00:00:00 2022-07-18 00:00:00 Refill Agueda Medrano [facility] 1.84.114 350.1.13.10 4.2.7.2.686 [id number] [facility] 2022-06-29 00:00:00 2022-06-29 00:00:00 Refill Agueda Medrano [facility] 1.2.840.114 350.1.13.10 4.2.7.2.686 [id number] [facility] 2022-06-15 00:00:00 2022-06-15 00:00:00 Refill [facility] TANNER?YANA [facility] 1.2840.114 350.1.13.10 4.2.7.2.686 [id number] [facility] 2022-06-04 00:00:00 2022-06-04 00:00:00 [facility] [place] [facility] 1..840.114 350.1.13.10 4.2.7.2.686 [id number] [facility] 2022-05-20 00:00:00 2022-05-20 00:00:00 Refill [facility] TANNER?YANA [facility] 1.840.114 350.1.13.10 4.2.7.2.686 [id number] [facility] 2022-05-13 00:00:00 2022-05-13 00:00:00 Refill [place] Vaughn [facility] 1.2.840.114 350.1.13.10 4.2.7.2.686 [id number] [facility] 2022-05-06 09:30:00 2022-05-06 09:30:00 Outpatient R VAUGHN DELAROSA [facility] [id number] [facility] 2022-05-04 00:00:00 2022-05-04 00:00:00 Refill [facility] 1.2.840.114 350.1.13.10 4.2.7.2.686 [id number] 044 [id number] [facility] 2022-04-30 00:00:00 2022-04-30 00:00:00 Refill Doctor Unassigned, [place] [facility] 1.840114 350.1.13.10 4.2.7.2.686 [id number] [id number] [facility] 2022-04-30 00:00:00 2022-04-30 00:00:00 Refill [place] Vaughn [facility] 1.114 350.1.13.10 4.2.7.2.686 [id number] 044 [id number] [facility] 2022-04-28 12:40:00 2022-04-28 13:16:51 Outpatient R XENIAADE KODI [facility] [id number] [facility] 2022-04-28 12:40:00 2022-04-28 13:16:51 Urgent Care Xeniaade [facility] 1.114 350.1.13.10 4.2.7.2.686 [id number] [facility] 2022-04-27 00:00:00 2022-04-27 00:00:00 [place] [facility] [facility] 1.114 350.1.13.10 4.2.7.2.686 [id number] 044 [id number] [facility] 2022-04-16 00:00:00 2022-04-16 00:00:00 Refill Delar[place], [facility] 1.84114 350.1.13.10 4.2.7.2.686 [id number] 044 [id number] [facility] 2022-04-14 00:00:00 2022-04-14 00:00:00 Orders Only Doctor Unassigned, [place] [facility] 1.114 350.1.13.10 4.2.7.2.686 [id number] [id number] [facility] 2022-04-05 00:00:00 2022-04-05 00:00:00 Refill [place] [facility] 1.114 350.1.13.10 4.2.7.2.686 [id number] 044 [id number] [facility] 2022-04-01 00:00:00 2022-04-01 00:00:00 Refill [place] [facility] 1.114 350.1.13.10 4.2.7.2.686 [id number] 044 [id number] [facility] 2022-03-22 14:40:00 2022-03-22 15:00:00 Nurse Visit Nurse, [facility] 1.114 350.1.13.10 4.2.7.2.686 [id number] [facility] 2022-03-22 14:40:00 2022-03-22 14:40:00 Outpatient Apryl SALINAS RIKA [facility] [id number] [facility] 2022-03-22 14:40:00 2022-03-22 14:40:00 Outpatient Apryl SALINAS RIKA [facility] [id number] [facility] 2022-03-08 00:00:00 2022-03-08 00:00:00 Refill [place] [facility] 1.84114 350.1.13.10 4.2.7.2.686 [id number] 044 [id number] [facility] 2022-03-01 00:00:00 2022-03-01 00:00:00 [facility] 1.2.840.114 350.1.13.10 4.2.7.2.686 [id number] 044 [id number] [facility] 2022-02-10 00:00:00 2022-02-10 00:00:00 [place]ill [place] [facility] 1.84.114 350.1.13.10 4.2.7.2.686 [id number] 044 [id number] [facility] 2022-02-07 00:00:00 2022-02-07 00:00:00 Maricarmen [place] [facility] 1.84.114 350.1.13.10 4.2.7.2.686 [id number] 044 [id number] [facility] 2022-02-01 00:00:00 2022-02-01 00:00:00 Maricarmen [place] [facility] 1.2.840.114 350.1.13.10 4.2.7.2.686 [id number] 044 [id number] [facility] 2022-01-12 00:00:00 2022-01-12 00:00:00 Outpatient AUR[facility]A_Jeffrey Haney_ AO AO [id number] [facility] 2022-01-07 00:00:00 2022-01-07 00:00:00 Maricarmen [place] [facility] 1.2.840.114 350.1.13.10 4.2.7.2.686 [id number] 044 [id number] [facility] 2021-12-30 00:00:00 2021-12-30 00:00:00 Telephone Team, [facility] 1.2.114 350.1.13.10 4.2.7.2.686 [id number] 082 [id number] [facility] 2021-12-25 00:00:00 2021-12-25 00:00:00 Refill Doctor Unassigned, [place] [facility] 1.2.114 350.1.13.10 4.2.7.2.686 [id number] 044 [id number] [facility] 2021-12-11 00:00:00 2021-12-11 00:00:00 Refill Doctor Unassigned, [place] [facility] 1.114 350.1.13.10 4.2.7.2.686 [id number] 044 [id number] [facility] 2021-12-11 00:00:00 2021-12-11 00:00:00 Refill Doctor Unassigned, [place] [facility] 1.2.114 350.1.13.10 4.2.7.2.686 [id number] 044 [id number] [facility] 2021-12-01 00:00:00 2021-12-01 00:00:00 Refill Vaughn [place] [facility] 1.2.114 350.1.13.10 4.2.7.2.686 [id number] 044 [id number] [facility] 2021-09-24 14:30:00 2021-09-24 14:37:41 Office Visit Vaughn [place] [facility] 1.2.114 350.1.13.10 4.2.7.2.686 [id number] 044 [id number] [facility] 2021-09-24 14:30:00 2021-09-24 14:37:41 Outpatient R VAUGHN DELAROSA [facility] [id number] [facility] 2021-09-24 14:30:00 2021-09-24 14:30:00 Outpatient R VAUGHN DELAROSA [facility] [id number] [facility] 2021-08-17 13:15:00 2021-08-17 13:43:04 Outpatient R VAUGHN DELAROSA [facility] [id number] [facility] 2021-08-17 13:15:00 2021-08-17 13:43:04 Office Visit [place] [facility] TANNER?YANA [facility] OFFICE BUILD[facility] 1..840.114 350.1.13.10 4.2.7.2.686 [id number] 044 [id number] [facility] 2021-08-17 00:00:00 2021-08-17 00:00:00 Refill Doctor Unassigned, [place] [facility] OFF[facility] BUILD[facility] ONE 1.840.114 350.1.13.10 4.2.7.2.686 [id number] 044 [id number] [facility] 2021-08-04 00:00:00 2021-08-04 00:00:00 Refill [place] [facility] OFF[facility] BUILD[facility] ONE 1.840.114 350.1.13.10 4.2.7.2.686 [id number] 044 [id number] [facility] 2021 00:00:00 2021 00:00:00 Refill [place], [facility] TANNER?YANA [facility] MED[facility] OFFICE BUILD[facility] 1..840.114 350.1.13.10 4.2.7.2.686 [id number] 044 [id number] [facility] 2021-07-06 00:00:00 2021-07-06 00:00:00 Refill [place], [facility] OFFICE BUILDING ONE 1.114 350.1.13.10 4.2.7.2.686 [id number] 044 [id number] [facility] 2021-06-23 00:00:00 2021-06-23 00:00:00 Jamila [place] [facility] 1.114 350.1.13.10 4.2.7.2.686 [id number] 044 [id number] [facility] 2021-06-16 00:00:00 2021-06-16 00:00:00 Maricarmen [place] [facility] OFFICE BUILDING ONE 1.114 350.1.13.10 4.2.7.2.686 [id number] 044 [id number] [facility] 2021-05-03 00:00:00 2021-05-03 00:00:00 Reffausto [place] [facility] Office Building One 1.114 350.1.13.10 4.2.7.2.686 [id number] 044 [id number] [facility] 2021-04-29 11:36:54 2021-04-29 16:54:12 Office Visit Holden Chau [facility] 1.114 350.1.13.10 4.2.7.2.686 [id number] [id number] [facility] 2021-04-29 11:30:00 2021-04-29 16:54:12 Outpatient R HOLDEN CHAU HOWARD [facility] [id number] [facility] 2021-04-29 00:00:00 2021-04-29 00:00:00 Orders Only Doctor Unassigned, [place] [facility] 1.114 350.1.13.10 4.2.7.2.686 [id number] [id number] [facility] 2021-04-20 00:00:00 2021-04-20 00:00:00 RefVaughn Riley [facility] Office Building One 1..114 350.1.13.10 4.2.7.2.686 [id number] 044 [id number] [facility] 2021-03-25 00:00:00 2021-03-25 00:00:00 Refill Vaughn Delarosa [facility] Office Building One 1..114 350.1.13.10 4.2.7.2.686 [id number] 044 [id number] [facility] 2021-03-15 00:00:00 2021-03-15 00:00:00 Refill BradRika [facility] Office Building One 1.114 350.1.13.10 4.2.7.2.686 [id number] 044 [id number] [facility] 2021-02-28 19:20:00 2021-02-28 19:20:00 Outpatient R RIKA SALINAS [facility] [id number] [facility] 2021-02-28 18:43:22 2021-02-28 19:13:02 Urgent Care Joan Lacey Amanda [facility] Office Building One .114 350.1.13.10 4.2.7.2.686 [id number] 044 [id number] [facility] 2021-02-23 09:00:12 2021-02-23 09:29:40 Urgent Care Rika Salinas Cynthia [facility] Office Building One 1.114 350.1.13.10 4.2.7.2.686 [id number] 044 [id number] [facility] 2021-02-23 09:00:00 2021-02-23 09:00:00 Outpatient R [facility] [id number] [facility] 2021-02-23 00:00:00 2021-02-23 00:00:00 Letter (Out) Rika Salinas [facility] Office Building One 1.840.114 350.1.13.10 4.2.7.2.686 [id number] 044 [id number] [facility] 2021-02-23 00:00:00 2021-02-23 00:00:00 Refill [place] [facility] Office Building One 1.840.114 350.1.13.10 4.2.7.2.686 [id number] 044 [id number] [facility] 2021-02-23 00:00:00 2021-02-23 00:00:00 Refill [place] Vaughn [facility] Office Building One 1.840.114 350.1.13.10 4.2.7.2.686 [id number] 044 [id number] [facility] 2021-02-23 00:00:00 2021-02-23 00:00:00 Telephone [place] Vaughn [facility] Office Building One 1.840.114 350.1.13.10 4.2.7.2.686 [id number] 044 [id number] [facility] 2021-02-23 00:00:00 2021-02-23 00:00:00 Patient Secure Msg Doctor Unassigned, [place] [facility] OFF[facility] BUILDING ONE 1.840.114 350.1.13.10 4.2.7.2.686 [id number] 044 [id number] [facility] 2021-02-06 00:00:00 2021-02-06 00:00:00 Orders Only Doctor Unassigned, [place] [facility] 1.840.114 350.1.13.10 4.2.7.2.686 [id number] [id number] [facility] 2021-02-04 11:34:56 2021-02-04 12:04:56 Office Visit Holden Chau [facility] 1..114 350.1.13.10 4.2.7.2.686 [id number] [id number] [facility] 2021-02-04 11:30:00 2021-02-04 11:30:00 Outpatient OHLDEN MORTON HOWARD [facility] [id number] [facility] 2021-02-04 11:30:00 2021-02-04 11:30:00 Outpatient HOLDEN MORTON HOWARD [facility] [id number] [facility] 2021-01-23 00:00:00 2021-01-23 00:00:00 Orders Only Doctor Unassigned, [place] [facility] ..114 350.1.13.10 4.2.7.2.686 [id number] [id number] [facility] 2021-01-15 11:39:12 2021-01-15 13:07:53 Urgent Care Provider, [facility] Urgent Care Ijeoma Casas [facility] Office Building One .840.114 350.1.13.10 4.2.7.2.686 [id number] 044 [id number] [facility] 2021-01-15 12:00:00 2021-01-15 12:00:00 Outpatient R [facility] [id number] [facility] 2021-01-08 00:00:00 2021-01-08 00:00:00 Refill Doctor Unassigned, [place] [facility] Office Building One ..114 350.1.13.10 4.2.7.2.686 [id number] 044 [id number] [facility] 2021-01-03 00:00:00 2021-01-03 00:00:00 Refill Vaughn Delarosa [facility] Office Building One 1.0.114 350.1.13.10 4.2.7.2.686 [id number] 044 [id number] [facility] 2020-12-30 16:07:43 2020-12-30 16:48:04 Office Visit [facility] 1.0.114 350.1.13.10 4.2.7.2.686 [id number] 092 [id number] [facility] 2020-12-30 16:20:00 2020-12-30 16:20:00 Outpatient HOLDEN MORTON HOWARD [facility] [id number] [facility] 2020-12-24 00:00:00 2020-12-24 00:00:00 Telephone [facility] 1.0.114 350.1.13.10 4.2.7.2.686 [id number] 092 [id number] [facility] 2020-12-20 00:00:00 2020-12-20 00:00:00 Reffausto Delarosa [facility] Office Building One 1.284.114 350.1.13.10 4.2.7.2.686 [id number] 044 [id number] [facility] 2020-12-19 13:30:00 2020-12-19 13:30:00 Outpatient IJEOMA LOPEZ [facility] [id number] [facility] 2020-12-18 00:00:00 2020-12-18 00:00:00 [facility] 1.284.114 350.1.13.10 4.2.7.2.686 [id number] 044 [id number] [facility] 2020-11-25 00:00:00 2020-11-25 00:00:00 Refill [place] [facility] Office Building One 1.0.114 350.1.13.10 4.2.7.2.686 [id number] 044 [id number] [facility] 2020-11-19 12:10:38 2020-11-19 12:25:38 Office Visit [place] [facility] Office Building One 1..114 350.1.13.10 4.2.7.2.686 [id number] 044 [id number] [facility] 2020-11-19 12:15:00 2020-11-19 12:15:00 [id number] 2020-11-14 00:00:00 2020-11-14 00:00:00 Telephone [place] [facility] Office Building One 1..114 350.1.13.10 4.2.7.2.686 [id number] 044 [id number] [facility] 2020-11-14 00:00:00 2020-11-14 00:00:00 Telephone [place] [facility] Office Building One 1..114 350.1.13.10 4.2.7.2.686 [id number] 044 [id number] [facility] 2020-11-14 00:00:00 2020-11-14 00:00:00 Orders Only Doctor Unassigned, [place] [facility] 1..114 350.1.13.10 4.2.7.2.686 [id number] [id number] [facility] 2020-11-13 00:00:00 2020-11-13 00:00:00 Telephone [place] [facility] Office Building One 1..114 350.1.13.10 4.2.7.2.686 [id number] 044 [id number] [facility] 2020-09-16 09:00:00 2020-09-16 09:00:00 Outpatient R VAUGHN DELAROSA [facility] [id number] [facility] 2020-09-04 00:00:00 2020-09-04 00:00:00 Telephone Ijeoma Casas [facility] Office Building One 1.114 350.1.13.10 4.2.7.2.686 [id number] 044 [id number] [facility] 2020-09-03 11:20:00 2020-09-03 11:20:00 Outpatient R IJEOMA CASAS [facility] [id number] [facility] 2020-09-03 10:54:41 2020-09-03 11:14:41 Laboratory Only Lab, Adc Fam Pob I Ijeoma Casas Bipin [facility] Office Building One 1.114 350.1.13.10 4.2.7.2.686 [id number] 044 [id number] [facility] 2020-06-16 08:43:32 2020-06-16 09:16:26 Office Visit [place] Vaughn [facility] Office Building One 1.114 350.1.13.10 4.2.7.2.686 [id number] 044 [id number] [facility] 2020-06-16 08:45:00 2020-06-16 08:45:00 Outpatient R VAUGHN DELAROSA [facility] [id number] [facility] 2020-06-16 00:00:00 2020-06-16 00:00:00 Letter (Out) [place] [facility] Office Building One 1.114 350.1.13.10 4.2.7.2.686 [id number] 044 [id number] [facility] 2020-06-09 00:00:00 2020-06-09 00:00:00 Refill Vaughn Delarosa [facility] Office Building One 1..114 350.1.13.10 4.2.7.2.686 [id number] 044 [id number] [facility] 2020-06-04 00:00:00 2020-06-04 00:00:00 Telephone Vaughn Delarosa [facility] Office Building One 1..114 350.1.13.10 4.2.7.2.686 [id number] 044 [id number] [facility] 2020-05-14 00:00:00 2020-05-14 00:00:00 Refill Doctor Unassigned, [place] [facility] Office Building One 1..114 350.1.13.10 4.2.7.2.686 [id number] 044 [id number] [facility] 2020-05-12 09:20:50 2020-05-12 09:40:50 Laboratory Only Lab, Adc Fam Pob Dakotah LashandaKarlene harperthia [facility] Office Building One 1..114 350.1.13.10 4.2.7.2.686 [id number] 044 [id number] [facility] 2020-05-12 09:20:00 2020-05-12 09:20:00 Outpatient R [facility] [id number] [facility] 2020-05-12 00:00:00 2020-05-12 00:00:00 Letter (Out) Doctor Unassigned, [place] [facility] .114 350.1.13.10 4.2.7.2.686 [id number] 044 [id number] [facility] 2020-05-09 14:20:00 2020-05-09 14:20:00 Outpatient R [facility] [id number] [facility] 2020-05-09 09:40:00 2020-05-09 09:40:00 Outpatient R [facility] [id number] [facility] 2020-05-05 00:00:00 2020-05-05 00:00:[address] [facility] 1.114 350.1.13.10 4.2.7.2.686 [id number] 092 [id number] [facility] 2020-04-18 00:00:00 2020-04-18 00:00:00 [facility] 1.114 350.1.13.10 4.2.7.2.686 [id number] 044 [id number] [facility] 2020-04-09 00:00:00 2020-04-09 00:00:00 Telephone [facility] 1.114 350.1.13.10 4.2.7.2.686 [id number] 092 [id number] [facility] 2020-03-28 15:00:10 2020-03-28 15:57:22 Office Visit [facility] 1.114 350.1.13.10 4.2.7.2.686 [id number] 092 [id number] [facility] 2020-03-28 14:40:00 2020-03-28 14:40:00 Outpatient R HOLDEN HCAUOCHHOLDEN Lucia [facility] [id number] [facility] 2020-03-28 00:00:00 2020-03-28 00:00:00 Orders Only Doctor Unassigned, [place] [facility] 1.114 350.1.13.10 4.2.7.2.686 [id number] [id number] [facility] 2020-02-20 00:00:00 2020-02-20 00:00:00 Refill [place] [facility] Office Building One 1.2.840.114 350.1.13.10 4.2.7.2.686 [id number] 044 [id number] [facility] 2020-02-20 00:00:00 2020-02-20 00:00:00 Telephone Vaughn Delarosa [facility] Office Building One 1.2.840.114 350.1.13.10 4.2.7.2.686 [id number] 044 [id number] [facility] 2020-01-14 00:00:00 2020-01-14 00:00:00 Refill Leticia [facility] Office Building One 1.2.840.114 350.1.13.10 4.2.7.2.686 [id number] 044 [id number] [facility] 2019-12-26 00:00:00 2019-12-26 00:00:00 Refill Vaughn Delarosa [facility] Office Building One 1.2.840.114 350.1.13.10 4.2.7.2.686 [id number] 044 [id number] [facility] 2019-12-07 00:00:00 2019-12-07 00:00:00 Telephone Leticia [facility] Office Building One 1.2.840.114 350.1.13.10 4.2.7.2.686 [id number] 044 [id number] [facility] 2019-12-05 11:00:46 2019-12-05 12:36:18 Urgent Care Pob1, Acute Care Clinic Agueda Medrano [facility] Office Building One 1.2.840.114 350.1.13.10 4.2.7.2.686 [id number] 044 [id number] [facility] 2019-12-05 11:00:00 2019-12-05 11:00:00 Outpatient R AGUEDA MEDRANO [facility] [id number] [facility] 2019-12-05 10:45:00 2019-12-05 10:45:00 Outpatient AGUEDA STORY [facility] [id number] [facility] 2019-10-23 00:00:00 2019-10-23 00:00:00 Refill [place] [facility] Office Building One 1.840.114 350.1.13.10 4.2.7.2.686 [id number] 044 [id number] [facility] 2019-09-20 07:27:52 2019-09-20 10:40:10 Office Visit [place] [facility] Office Building One 1.840.114 350.1.13.10 4.2.7.2.686 [id number] 044 [id number] [facility] 2019-09-19 00:00:00 2019-09-19 00:00:00 Telephone [place] [facility] Office Building One 1.840.114 350.1.13.10 4.2.7.2.686 [id number] 044 [id number] [facility] 2019-09-19 00:00:00 2019-09-19 00:00:00 Orders Only Doctor Unassigned, [place] [facility] 1.2.840.114 350.1.13.10 4.2.7.2.686 [id number] [facility] 2019-09-12 00:00:00 2019-09-12 00:00:00 Refill [place] [facility] Office Building One 1.840.114 350.1.13.10 4.2.7.2.686 [id number] 044 [id number] [facility] 2019-08-30 00:00:00 2019-08-30 00:00:00 Refill [place] [facility] Office Building One 1.840.114 350.1.13.10 4.2.7.2.686 [id number] 044 [id number] [facility] 2019-08-28 00:00:00 2019-08-28 00:00:00 Refill Vaughn Delarosa [facility] Office Building One 1.2.840.114 350.1.13.10 4.2.7.2.686 [id number] 044 [id number] [facility] 2019-08-22 09:25:17 2019-08-22 09:49:43 Office Visit Vaughn Delarosa [facility] Office Building One 1.2.840.114 350.1.13.10 4.2.7.2.686 [id number] 044 [id number] [facility] 2019-08-22 00:00:00 2019-08-22 00:00:00 Telephone Vaughn Delarosa [facility] Office Building One 1.2.840.114 350.1.13.10 4.2.7.2.686 [id number] 044 [id number] [facility] 2019-08-22 00:00:00 2019-08-22 00:00:00 Letter (Out) Vaughn Delarosa [facility] Office Building One 1.2.840.114 350.1.13.10 4.2.7.2.686 [id number] 044 [id number] [facility] 2019-03-07 12:35:23 2019-03-07 12:57:59 Office Visit Veronica Walkertany [facility] Office Building One 1.2.840.114 350.1.13.10 [id number] [id number] [facility] 2019-03-07 00:00:00 2019-03-07 00:00:00 Letter (Out) Veronica Walkertany [facility] [id number] [id number] [id number] [id number] [facility] 2019-03-05 00:00:00 2019-03-05 00:00:00 Vaughn Pringle [facility] One [id number] [id number] [id number] [id number] [facility] Results Test Description Test Time Test Comments Results Resul t Comments Source - MRI L-SPINE W/O CONT 2023-03-07 08:03:00 [facility] 1970 Sex: F Patient Name: FRANSISCA CATES Unit No: [id number] EXAMS: CPT CODE: [id number] MRI L-SPINE W/O CONT 89904 DIAGNOSIS: 1. At L1-2 there is no evidence for disc bulge or herniation, bony canal or foraminal stenosis. Comparison is made with the previous examination of July 26, 2017. 2. At L2-3 there is a grade 1 retrolisthesis and disc bulging with mild canal stenosis and facet degeneration. Mild foraminal narrowing is present left worse than right. 3. At L3-4 there is a grade 1 retrolisthesis and 3 mm of caudally extruded disc herniation compressing the thecal sac and contributing to a moderate to marked canal stenosis with facet degeneration. Moderate foraminal narrowing is present. 4. At L4-5 there is a grade 1 retrolisthesis and disc bulging with moderate foraminal narrowing left worse than right. Moderate canal stenosis is seen with facet degeneration. 5. At L5-S1 there is a grade 1 retrolisthesis with endplate spur formation and disc bulging. Moderate to marked foraminal narrowing is present on the left with impingement on the left L5 nerve root. Moderate right foraminal stenosis is seen. There is a left-sided laminectomy with decompression of the canal. Facet degeneration is present. COMMENT: COMPARISON: July 26, 2017 Scans were performed in the sagittal and axial planes utilizing T1, T2 and inversion recovery images. Endplate and disc degeneration is seen from L2 to S1. There is a scoliosis convex right Disc configurations are as described. Spondylitic changes are as noted. The conus is in the expected location. The description of the levels of these findings is consistent with the prior exam. at 0803 Reported and signed by: Jake Watkins MD CC: Dax CUN[place] Technologist: COLE LINDO, MALACHI Transcribed D/ (08) [facility] NAME: FRANSISCA CATES [id number] [facility] PHYS: GHAZAL.Taina - Dax Lieberman : 1970 AGE: 52 SEX: F [place] [phone] LOC: Y.MRI PHONE #: [phone] EXAM DATE: 03/04/2023 STATUS: DEP CLI FAX #: [phone] RAD #: D/C DT PAGE 1 Signed Report Patient Name: FRANSISCA CATES Unit No: [id number] EXAMS: CPT CODE: [id number] MRI L-SPINE W/O CONT 14484 (Continued) Orig Print D/T: S: 03/07/2023 (0806) [facility] NAME: FRANSISCA CATES [address] [facility] PHYS: GHAZAL.Taina - Dax Lieberman : 1970 AGE: 52 SEX: F [place] [phone] LOC: Y.MRI PHONE #: [phone] EXAM DATE: 03/04/2023 STATUS: DENISSE CLI FAX #: [phone] RAD #: D/C DT PAGE 2 [facility] >30DAYS[facility]2022-12-22 17:05:00* Test Item Value Reference Range Interpretation Comme nts POCT Glu (age>30days) (test code = 3342) 88 mg/dL 70-110 [facility] GRDNIXK4849-09-21 19:48:21 * Test Item Value Reference Range Interpretation Comme nts TSH (test code = 2174611951) 0.16 See_Comment L [Automated messa ge] The system which generated this result transmitted reference range: 0.45 - 4.70 mIU/L. The reference range was not used to interpret this result as normal/abnormal. Lab Interpretation (test code = 60350-1) Abnormal [facility] K93258-61-82 19:35:16* Test Item Value Reference Range Interpretation Comme nts FREE T4 (test code = 6758805819) 1.10 See_Comment [Automated messa ge] The system which generated this result transmitted reference range: 0.78 - 2.20 ng/dL:. The reference range was not used to interpret this result as normal/abnormal. Lab Interpretation (test code = 51314-1) Normal [facility] U90659-65-00 19:34:35* Test Item Value Reference Range Interpretation Comme nts FREE T3 (test code = 6280157712) 4.31 pg/mL 2.77-5.27 Lab Interpretation (test cod e = 70486-0) Normal [facility]. METABOLIC PANEL (13409)2022-10-18 19:22:54* Test Item Value Reference Range Interpretation Comme nts NA (test code = 6255818635) 139 mmol/L 135-145 K (test code = 8301170584) 4.3 mmol/L 3.5-5.0 CL (test code = 5799046909) 100 mmol/L 98-108 CO2 TOTAL (test code = 4749678754) 31 mmol/L 23-31 AGAP (test code = 9479483957) 8 2-16 BUN (test code = 1713939647) 9 mg/dL 7-23 GLUCOSE (test code = 0117800545) 86 mg/dL 70-110 CREATININE (test code = 7408349020) 0.69 mg/dL 0.50-1.04 TOTAL BILI (test code = 9745286487) 0.6 mg/dL 0.1-1.1 CALCIUM (test code = 6507302649) 9.7 mg/dL 8.6-10.6 T PROTEIN (test code = 6880728538) 7.3 g/dL 6.3-8.2 ALBUMIN (test code = 2088596746) 4.5 g/dL 3.5-5.0 ALK PHOS (test code = 3300611472) 65 U/L 34-122 ALTv (test code = 1742-6) 26 U/L 5-35 AST(SGOT) (test code = 1186840536) 36 U/L 13-40 eGFR (test code = 9834174911) 89.7 mL/min/1.73m2 CAMI (test code = CAMI) Association of Glomerular Filtration Rate (GFR) and Staging of Kidney Disease* + + +- +| GFR (mL/min/1.73 m2) ?| With Kidney Damage ?| ?Without Kidney Damage+ ------+ ----+ ------+| ?>90 ?| ?Stage one ?| ? Normal ?+ -+ + -+| ?60-89 ?| ?Stage two ?| ? Decreased GFR ? + + +- +| ?30-59 ?| ?Stage three ?| ? Stage three ? + + +- +| ?15-29 ?| ?Stage four ? | ? Stage four ?+ -+ + -+| ?<15 (or dialysis) ? ?| ?Stage five ? | ? Stage five ?+ -+ + -+ *Each stage assumes the associated GFR level has been in effect for at least three months. ?Stages 1 to 5, with or without kidney disease, indicate chronic kidney disease. Notes: Determination of stages one and two (with eGFR >59mL/min/1.73 m2) requires estimation of kidney damage for at least three months as defined by structural or functional abnormalities of the kidney, manifested by either:Pathological abnormalities or Markers of kidney damage (including abnormalities in the composition of the blood or urine or abnormalities in imaging tests). [facility] WITH OUVL0046-24-81 18:40:07* Test Item Value Reference Range Interpretation Comme nts WBC (test code = 6690-2) 7.26 See_Comment [Automated messa ge] The system which generated this result transmitted reference range: 4.30 - 11.10 10*3/?L. The reference range was not used to interpret this result as normal/abnormal. RBC (test code = 789-8) 4.06 See_Comment [Automated messa ge] The system which generated this result transmitted reference range: 3.93 - 5.25 10*6/?L. The reference range was not used to interpret this result as normal/abnormal. HGB (test code = 718-7) 12.6 g/dL 11.6-15.0 HCT (test code = 4544-3) 38.2 % 35.7-45.2 MCV (test code = 787-2) 94.1 fL 80.6-95.5 MCH (test code = 785-6) 31.0 pg 25.9-32.8 MCHC (test code = 786-4) 33.0 g/dL 31.6-35.1 RDW-SD (test code = 36192-7) 44.0 fL 39.0-49.9 RDW-CV (test code = 788-0) 12.6 % 12.0-15.5 PLT (test code = 777-3) 393 See_Comment H [Automated messa ge] The system which generated this result transmitted reference range: 166 - 358 10*3/?L. The reference range was not used to interpret this result as normal/abnormal. MPV (test code = 12491-0) 11.2 fL 9.5-12.9 NRBC/100 WBC (test code = 7071524687) 0.0 See_Comment [Automated [employer] ssage] The system which generated this result transmitted reference range: 0.0 - 10.0 /100 WBCs. The reference range was not used to interpret this result as normal/abnormal. NRBC x10^3 (test code = 9034793826) See_Comment [Automated messa ge] The system which generated this result transmitted reference range: 10*3/?L. The reference range was not used to interpret this result as normal/abnormal. GRAN MAT (NEUT) % (test code = 770-8) 41.4 % IMM GRAN % (test code = 1117726483) 0.10 % LYMPH % (test code = 736-9) 40.1 % MONO % (test code = 5905-5) 8.7 % EOS % (test code = 713-8) 7.6 % BASO % (test code = 706-2) 2.1 % GRAN MAT x10^3(ANC) (test code = 4705177490) 3.01 10*3/uL 1.88-7.09 IMM GRAN x10^3 (test code = 3940102612) 0.00-0.06 LYMPH x10^3 (test code = 731-0) 2.91 10*3/uL 1.32-3.29 MONO x10^3 (test code = 742-7) 0.63 10*3/uL 0.33-0.92 EOS x10^3 (test code = 711-2) 0.55 10*3/uL 0.03-0.39 H BASO x10^3 (test code = 704-7) 0.15 10*3/uL 0.01-0.07 H Lab Interpretation (test code = 77304-1) Abnormal [facility] Notes Date/Time Note Provider Source 2023-11-28 07:31:01 UhULfoaCOc/WTod5JxVm NhAsio11gxeb7Jj ruNK4BnJJa++7Ve88ArWzihbn37C/11-27T07:31:01 Last Refilled:GABAPENTIN 400 mg capsule 90 capsule 1 08/31/2023 -- NoSig: TAKE 1 CAPSULE BY MOUTH IN THE MORNING AND 1 CAPSULE AT NOON AND 1 CAPSULE IN THE EVENINGSent to pharmacy as: gabapentin 400 mg capsule (NEURONTIN)Class: eRXOrder: [id number]/Time Signed: 08/31/2023 13:43E-Prescribing Status: Receipt confirmed by pharmacy (08/31/2023 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)Recent VisitsDate Type Provider Dept11/14/23 Office Visit Nunu Rodriguez FNP [facility] Med10/12/22 Office Visit Gena Baires FNP [facility] Med10/04/22 Office Visit Vaughn Delarosa MD [facility]09/08/22 Office Visit Vaughn Delarosa MD [facility] Fam MedShowing recent visits within past 540 days with a meds authorizing provider and meeting all other requirementsFuture AppointmentsNo visits were found meeting these conditions.Showing future appointments within next 150 days with a meds authorizing provider and meeting all other requirements 32765-0Mydacnkhm encounter PpnbWV3945-61-90H02:31:40Telephone encounter NoteTXT1.2.840.533779.1.13.104.2.7. 2.101248|[id number] for patient cszu78737-5ClbkOVAMUWZLDTJOtrdaeeqn C-CDA narrative [id number] [address] Yj[id number] 5QUOKIIHWFDZCLDLQBYHOKZ7313-31-95Z5 7:31:401.2.840.513350.1.72.3.15|1.2 .840.207814.1.13.104.2.7.2.727879_2 [id number] Jenna [facility] 2023-11-18 15:23:23 IQjXZV29FEOACasJHlwb Jopmk3tg4bmAKSA yKMqoX38U4heydSgrNh3jK9Anxenz0270-4 5:23:23 First attempt to contact patient to clarify. Per provider clarification was made. 33675-0Kfxuoxoix encounter LfxvOD9732-64-58V10:23:45Telephone encounter NoteTXT1.2.840.214658.1.13.104.2.7. 2.385953|[id number] for patient vmok42102-4TygwCCLXKKTCLOKIrswcclrf C-CDA narrative [id number] 7GARZIOPLAHBTPHBTJTUAYZ8193-13-34O5 5:23:451.2.840.836241.1.72.3.15|1.2 .840.796033.1.13.104.2.7.2.727879_2 [id number] [facility] 2023-11-18 12:32:55 a6wUSOd7XE958I22WxGU qRn/9bvopNNhT7Z 53fYFGyYqutzdiz6wGv9atgg4d2rO7190-3 11-17T12:32:55 This has been clarified already [place] call [place] the [place] [address]-7Fieiqrkpl encounter XhjdNR7509-43-22J71:33:38Telephone encounter NoteTXT1.2.840.144966.1.13.104.2.7. 2.678500|[id number] for patient qhlm08443-8FfheIMYEJUAUIAYAfpanzsvc C-CDA narrative [id number] 3GCOTFTVTSWIIPMGZREKNVC8519-60-71S7 2:33:381.2.840.898799.1.72.3.15|1.2 .840.959371.1.13.104.2.7.2.727879_2 [id number] [facility] 2023-11-17 10:20:17 cHRoqIo1tYODWH5iAGkO /dOOCRHighLpmif UqQCEuOYYyN8ID3soJUUWJjPiP8fa3751-6 11-16T10:20:17 Please clarify sigDisp Refills Start End DAWrizatriptan 10 mg disintegrating tablet 30 tablet 11 11/16/2023 -- --Sig: May repeat in 2 hours if needed. Max dose 20mg in 24hrs.Sent to pharmacy as: rizatriptan 10 mg disintegrating tablet ([employer]SAIL REPAIR PERSON)Class: eRXOrder: [id number]/Time Signed: 11/16/2023 11:05E-Prescribing Status: Receipt confirmed by pharmacy (11/16/2023 11:05 AM CDT) 40524-2Ybptgqmbi encounter KvauTV3983-44-34Q28:20:32Telephone encounter NoteTXT1.2.840.275988.1.13.104.2.7. 2.352489|[id number] for patient nhpt27846-3AdkaNOXMIYPFNEJUryrsonwx C-CDA narrative [address] TowqHr[id number] 8YGKPIUJNCKCEXIGJOIZJRS8678-11-26E8 0:20:321.2.840.134186.1.72.3.15|1.2 .840.173698.1.13.104.2.7.2.727879_2 [id number] [facility] 2023-11-17 08:25:45 fGbXLwvCsbUb6rdS8rv+ aCr63RXPIIunf+I r+KeuX5Ndb9CZeQ2Fv4WEDB1gtE7x3642-9 08:25:45 Pt calling back to see if this can be done for her today please 25150-2Hsrrxvamz encounter JcqrEF4545-21-80G31:32:02Telephone encounter NoteTXT1.2.840.432697.1.13.104.2.7. 2.769819|[id number] for patient oqsa49244-0IyvlPQOXWXOLDEQFedgkpgfc C-CDA narrative sqgr006641432Msmug C [address] Gbjb[id number] 0ZFDEKKJPZXGVLSZOPNFIEA1392-59-01W4 8:32:021.2.840.114606.1.72.3.15|1.2 .840.156315.1.13.104.2.7.2.727879_2 [id number] Kellee [facility] 2023-11-17 07:09:20 lCVGlmTm5TWssxYBrXmh oaxgL0RiyGZj0MY J8VzpVetnUMYVPgVt8kUEWpbKOx7B4928-9 11-16T07:09:20 Fransisca Cates is a 53 year old femalePt is calling back stating that Rx is needing clarification of direction called in to Pharmacy. Rx rizatriptan 10 mg disintegrating tablet ([employer]IL REPAIR PERSON) . Please contact at pt at [phone] (home) 89989-1Rbanyvgeb encounter WcqvUO6920-39-92P30:11:02Telephone encounter NoteTXT1.2.840.482379.1.13.104.2.7. 2.565078|8739109397LNPsxslgmeo for patient bxuj46936-5WhtkQIICKHSOHUAAtykpovew C-CDA narrative tedy813306353Sgvavz R [address] UqxqAqnmkjtkzTselpgjzgTLOE631998947 8WYIVNICJDKNNNTSTIRUUHD8563-56-64C0 7:11:021.2.840.402979.1.72.3.15|1.2 .840.977686.1.13.104.2.7.2.727879_2 [id number] [facility] 2023-11-16 11:05:10 SuRy5KuBCMF3kqbFpOm2 k4a0aR158ulZj0+ ypgXkyl1R0Jyx6J62wCiV4Wxujgj54597-7 1:05:10 Done 12955-7Lfnjrhvnu encounter WkqoEA6191-64-16X03:05:22Telephone encounter NoteTXT1.2.840.616099.1.13.104.2.7. 2.148191|2766672777UIHigaoqxhz for patient aepl74715-8SfcfJKTDIRPJULVGbqyxrpud C-CDA narrative text[address] XamcTvwdqeokcJurtoeaoyFJWY310608401 8RDXWDNXWKFEQVWWUDGKVLQ3809-53-57R2 1:05:221.2.840.000844.1.72.3.15|1.2 .840.806470.1.13.104.2.7.2.727879_2 [id number] [facility] 2023-11-16 09:57:36 GFjm3rOk5VaZc1lV/kGu RY0jQ1rNfBEy/VW 5IwSzBwXjTxre0HBw2ZmaL4t68FNa3622-7 09:57:36 Outpatient Medication DetailDisp Refills Start End DAWrizatriptan 10 mg disintegrating tablet 30 tablet 11 11/14/2023 -- NoSig: May repeat in 2 hours if needed. Do not exceed 2 doses in any 24 period.Please clarify directions 21744-3Ummjsabvq encounter SfruQI1864-05-90N41:57:59Telephone encounter NoteTXT1.2.840.991713.1.13.104.2.7. 2.919870|6616342996YECuwpdnsss for patient skhv82686-5UsapAOAUKQNZXQEQfyhmzfpd C-CDA narrative cubb210361177Cqutatm M Fisher [address] Xi[id number] 1CISKNXNDHBLAXRCVTGSAXS5029-77-72Z6 9:57:591.2.840.828038.1.72.3.15|1.2 .840.754670.1.13.104.2.7.2.727879_2 [id number] Tayler Gagnon [facility] 2023-11-16 09:34:45 Fe8VZhU99GU81c/rXbWE GxreSLpzdE/xtKj C6M2uScOz3g5x+4uGFAmXJ6MkA1TQ5267-7 09:34:45 Copied from [facility] #[id number]. 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 Patient is currently experiencing migraine symptoms and would like a call back [facility] [phone] (home) 43041-5Zahqrxcas encounter IdwdVW6353-94-22W37:37:46Telephone encounter NoteTXT1.2.840.683537.1.13.104.2.7. 2.553660|5830078922RCDstntfeyg for patient cgog89003-9BsaoNPJVIRIXXFMXuolnknaa C-CDA narrative vcix530386314FiBkfbge [address] TnwjDibojpvkcArpkpejiwQABQ716701508 2SPDMOTJOALKJDAZMNNMRKF0152-54-19Z0 9:37:461.2.840.144867.1.72.3.15|1.2 .840.053487.1.13.104.2.7.2.727879_2 [id number] [facility]"
[2023-12-01] MEDS ORDERED: DIPHENHYDRAMINE 50 MG/ML VIAL ONE (21:03)
[2023-12-01] MEDS ORDERED: KETOROLAC 30 MG/ML INJ ONE (21:03)
[2023-12-01] MEDS ORDERED: NA CHLORIDE 0.9% 1,000 ML ONE (21:03)
[2023-12-01] MEDS ORDERED: METOCLOPRAMIDE 10 MG/2mL INJ ONE (21:03)
[2023-12-01 21:13] LABS: Absolute Basophils 0.1 K/uL (0-0.5); Absolute Eosinophils 0.3 K/uL (0-0.5); Absolute Lymphocytes (CBC) 2.8 K/uL (0.7-4.9); Absolute Monocytes 0.5 K/uL (0.1-1.3); Absolute Neutrophil 3.1 K/uL (1.8-8.0); Basophils % 1.4 % (0-1.3); Eosinophils % 4.7 % (0-4.4); Hematocrit 38.8 % (36.0-45.0); Hemoglobin 13.4 g/dL (12.0-15.0); Lymphocytes % 40.8 % (15.3-44.8); MCH 30.8 pg (27.0-35.0); MCHC 34.4 g/dL (32.0-36.0); MCV 89.6 fL (80-100); MPV 8.6 fL (7.6-11.3); Monocytes % 7.7 % (3.3-12.3); Neutrophils % 45.4 % (41.7-73.7); Nucleated Red Blood Cells % 0.1 % (0-0); Platelets 424 thou/uL (152-406); RBC Red Blood Cell Count 4.34 M/uL (3.86-4.86); Red Cell Distribution Width 13.1 % (12.1-15.2)
[2023-12-01 21:23] LABS: Albumin/Globulin Ratio 1.2 (1.1-1.8); Anion Gap 9.7 mEq/L (5.0-15.0); Bilirubin Total 0.4 mg/dL (0.2-1.0); Globulin 3.4 g/dL (2.3-3.5); Potassium 3.7 mEq/L (3.5-5.1); Protein, Total 7.4 g/dL (6.4-8.2)
--- NOTE | 2023-12-01 21:40 | EDPHYS ---
Physician Documentation [facility] Name: Fransisca Javier Age: 53 yrs Sex: Female : 1970 Arrival Date: 12/01/2023 Time: 20:04 Bed 13 Private MD: ODILIA Physician Eric Nolen HPI: 11/30 21:29 This 53 yrs old Female presents to ER via Wheelchair with complaints of chuckie Headache. 21:29 The patient complains of pain to the top of head, forehead, left frontal area, left chuckie side of the back of head, right frontal area and right side of the back of head. The patient describes the headache as aching, constant. Onset: The symptoms/episode began/occurred 2 day(s) ago. Associated signs and symptoms: Pertinent positives: nausea, vomiting. Severity of symptoms: At its worst the pain was moderate, in the emergency department the pain is unchanged. Headache History: The patient has had previous headaches and this one is similar to previous episodes. The symptoms are alleviated by Darkened room, quiet, remaining still, the symptoms are aggravated by lights, movement, noise. The patient has experienced similar episodes in the past, multiple times. 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 - Infectious Disease History:: Denies. - Social history:: Smoking status: Reported history of juuling and/or vaping. - Family history:: not pertinent. ROS: 21:29 Constitutional: Negative for fever, chills, and weight loss, Eyes: Negative for injury, chuckie pain, redness, and discharge, ENT: Negative for injury, pain, and discharge, Neck: Negative for injury, pain, and swelling, Cardiovascular: Negative for chest pain, palpitations, and edema, Respiratory: Negative for shortness of breath, cough, wheezing, and pleuritic chest pain, Back: Negative for injury and pain, : Negative for injury, bleeding, discharge, and swelling, MS/Extremity: Negative for injury and deformity, Skin: Negative for injury, rash, and discoloration, Psych: Negative for depression, anxiety, suicide ideation, homicidal ideation, and hallucinations, Allergy/Immunology: Negative for hives, rash, and allergies, Endocrine: Negative for neck swelling, polydipsia, polyuria, polyphagia, and marked weight changes, Hematologic/Lymphatic: Negative for swollen nodes, abnormal bleeding, and unusual bruising, 21:29 Abdomen/GI: Positive for nausea and vomiting, 21:29 Neuro: Positive for headache, Exam: 21:29 Constitutional: This is a well developed, well nourished patient who is awake, alert, chuckie and in no acute distress. Head/Face: Normocephalic, atraumatic. Eyes: Pupils equal round and reactive to light, extra-ocular motions intact. Lids and lashes normal. Conjunctiva and sclera are non-icteric and not injected. Cornea within normal limits. Periorbital areas with no swelling, redness, or edema. ENT: Nares patent. No nasal discharge, no septal abnormalities noted. Tympanic membranes are normal and external auditory canals are clear. Oropharynx with no redness, swelling, or masses, exudates, or evidence of obstruction, uvula midline. Mucous membranes moist. Neck: Trachea midline, no thyromegaly or masses palpated, and no cervical lymphadenopathy. Supple, full range of motion without nuchal rigidity, or vertebral point tenderness. No Meningismus. Chest/axilla: Normal chest wall appearance and motion. Nontender with no deformity. No lesions are appreciated. Cardiovascular: Regular rate and rhythm with a normal S1 and S2. No gallops, murmurs, or rubs. Normal PMI, no JVD. No pulse deficits. Respiratory: Lungs have equal breath sounds bilaterally, clear to auscultation and percussion. No rales, rhonchi or wheezes noted. No increased work of breathing, no retractions or nasal flaring. Abdomen/GI: Soft, non-tender, with normal bowel sounds. No distension or tympany. No guarding or rebound. No evidence of tenderness throughout. Back: No spinal tenderness. No costovertebral tenderness. Full range of motion. Skin: Warm, dry with normal turgor. Normal color with no rashes, no lesions, and no evidence of cellulitis. MS/ Extremity: Pulses equal, no cyanosis. Neurovascular intact. Full, normal range of motion. Neuro: Awake and alert, GCS 15, oriented to person, place, time, and situation. Cranial nerves II-XII grossly intact. Motor strength 5/5 in all extremities. Sensory grossly intact. Cerebellar exam normal. Normal gait. Psych: Awake, alert, with orientation to person, place and time. Behavior, mood, and affect are within normal limits. 21:29 Neck: External neck: is normal, no acute changes, ROM/movement: is normal, no acute changes, Meningeal signs: are not present, Kernig's sign is negative, Brudzinski's sign is negative, nuchal rigidity, is not appreciated, Lymph nodes: no appreciated lymphadenopathy, Vital Signs: 20:29 BP 131 / 93; Pulse 96; Resp 16; Temp 98.1(TE); Pulse Ox 100% on R/A; Weight 52.16 kg; nj1 Height 5 ft. 8 in. ; Pain 10/10; 20:30 BP 122 / 83; Pulse 116; Resp 18; Pulse Ox 99% on R/A; me1 21:00 BP 132 / 83; Pulse 93; Resp 16; Pulse Ox 100% on R/A; me1 20:29 Body Mass Index 17.49 (52.16 kg, 172.72 cm) [facility] 20:29 Pain Scale: Adult nj1 Jorge Coma Score: 21:36 Eye Response: spontaneous(4). Motor Response: obeys commands(6). Verbal Response: chuckie oriented(5). Total: 15. MDM: 20:30 Patient medically screened. chuckie 21:36 Differential diagnosis: cluster headache, hypoglycemia, migraine, neoplasm, temporal chuckie arteritis, tension headache, trigeminal neuralgia, vasomotor headache. Data reviewed: vital signs, nurses notes, lab test result(s). Consideration of Admission/Observation Escalation of care including admission/observation considered. I considered the following discharge prescriptions or medication management in the emergency department Medications were administered in the Emergency Department. See MAR. Test considered but Not performed: CT: NO CT HEAD , USUAL PINEDA. Care significantly affected by the following chronic conditions: TMJ , MIGRAINES. 11/30 20:49 Order name: CBC with Diff; Complete Time: 21:48 [facility] 11/30 20:49 Order name: Comprehensive Metabolic Panel; Complete Time: 21:48 [facility] 11/30 20:49 Order name: Urinalysis w/ reflexes [facility] 11/30 20:49 Order name: Oxygen; Complete Time: 21:14 chuckie Administered Medications: 21:11 Drug: NS 0.9% IV 1000 ml IV at 1 bolus Per protocol; 1000 mL bolus Route: IV; Rate: 1 me1 bolus; Site: right antecubital; 22:16 Follow up: Response: No adverse reaction; IV Status: Completed infusion; IV Intake: me1 1000ml 21:11 Drug: metoCLOPramide IVP 10 mg IVP once; over 1 to 2 minutes Route: IVP; Site: right me1 antecubital; 21:47 Follow up: Response: No adverse reaction; Pain is decreased me1 21:11 Drug: diphenhydrAMINE IVP 50 mg IVP once Route: IVP; Site: right antecubital; me1 21:47 Follow up: Response: No adverse reaction; Pain is decreased me1 21:11 Drug: Ketorolac IVP 30 mg IVP once Route: IVP; Site: right antecubital; me1 21:47 Follow up: Response: No adverse reaction; Pain is decreased me1 Disposition Summary: 12/01/23 21:40 Discharge Ordered Notes: Location: Home chuckie Problem: new chuckie Symptoms: have improved chuckie Condition: Stable chuckie Diagnosis - Headache chuckie - Migraine with aura, not intractable, without status migrainosus chuckie Followup: chuckie - With: Private Physician - When: 2 - 3 days - Reason: Recheck today's complaints, Continuance of care, Re-evaluation by your physician Followup: chuckie - With: Tj Beckman MD - When: 2 - 3 days - Reason: Recheck today's complaints, Re-evaluation by your physician Discharge Instructions: - Discharge Summary Sheet chuckie - General Headache Without Cause chuckie - Migraine Headache chuckie - Migraine Headache, Hejx-xa-Vgiy chuckie - General Headache Without Cause, Uash-ao-Bdno chuckie Forms: - Medication Reconciliation Form chuckie - Antibiotic Education chuckie - Prescription Opioid Use chuckie - Patient Portal Instructions [facility] - Leadership Thank You Letter [facility] Prescriptions: - ondansetron 4 mg Oral Tablet,disintegrating - take 1 tablet ORAL route every 8 hours for 5 days PRN NAUSEA AND VOMITING; 20 chuckie tablet; Refills: 0, Product Selection Permitted - Fioricet with Codeine [phone] mg Oral capsule - take 2 capsule ORAL route every 4 hours as needed for pain; do not exceed 6 chuckie caps per day; 15 capsule; Refills: 0, Product Selection Permitted Signatures: Dispatcher [employer] EDEric Laguerre MD MD cha Jaco, Norma RN RN nj1 Sheila Mir RN RN me1 Corrections: (The following items were deleted from the chart) 20:49 20:49 CBC+H.LAB.BRZ ordered. EDMS EDMS 20:49 20:49 COMPREHENSIVE METABOLIC PANEL+C.LAB.BRZ ordered. EDMS EDMS 20:49 20:49 Urinalysis+U.LAB.BRZ ordered. EDMS EDMS
--- NOTE | 2023-12-01 21:40 | ER ---
Nurse's Notes [facility] Name: Fransisca Javier Age: 53 yrs Sex: Female : 1970 Arrival Date: 12/01/2023 Time: 20:04 Bed 13 Private MD: Diagnosis: Headache;Migraine with aura, not intractable, without status migrainosus Presentation: 11/30 20:29 Chief complaint: Patient states: "Migraine" since this morning. Has taken all of her [facility] meds with no relief. Has hx of migraines since she was a child. 20:29 Coronavirus screen: Vaccine status: Patient reports being unvaccinated. Ebola Screen: [facility] Patient denies travel to an Ebola-affected area in the 21 days before illness onset. Initial Sepsis Screen: Does the patient meet any 2 criteria? HR > 90 bpm. No. Patient's initial sepsis screen is negative. Does the patient have a suspected source of infection? No. Patient's initial sepsis screen is negative. Risk Assessment: Do you want to hurt yourself or someone else? Patient reports no desire to harm self or others. Onset of symptoms was December 01, 2023. 20:29 Method Of Arrival: Wheelchair [facility] 20:29 Acuity: CIARAN 3 nj1 Triage Assessment: 22:16 General: Appears uncomfortable, well groomed, well developed, well nourished, Behavior me1 is calm, cooperative, appropriate for age. Pain: Also complains of nausea. 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 - Infectious Disease History:: Denies. - Social history:: Smoking status: Reported history of juuling and/or vaping. - Family history:: not pertinent. Screenin:12 [facility] ED Fall Risk Assessment (Adult) History of falling in the last 3 months, me1 including since admission No falls in past 3 months (0 pts) Confusion or Disorientation No (0 pts) Intoxicated or Sedated No (0 pts) Impaired Gait No (0 pts) Mobility Assist Device Used No (0 pt) Altered Elimination No (0 pt) Score/Fall Risk Level 0 - 2 = Low Risk Maintained a safe environment, Provided non-skid footwear, Hourly rounding (assess needs \\T\\ fall precautionary measures) done. Abuse screen: Denies threats or abuse. Nutritional screening: No deficits noted. Tuberculosis screening: No symptoms or risk factors identified. Assessment: 21:12 General: Appears uncomfortable, well groomed, well developed, well nourished, Behavior me1 is calm, cooperative, appropriate for age, Reports migraine since this morning. Has hx of migraines. Pain: Complains of pain in head Pain does not radiate. Pain currently is 10 out of 10 on a pain scale. Quality of pain is described as aching, Pain began gradually, Is continuous. Neuro: Level of Consciousness is awake, alert, obeys commands, Oriented to person, place, time, situation, Appropriate for age. Cardiovascular: Capillary refill < 3 seconds Patient's skin is warm and dry. Respiratory: Airway is patent Respiratory effort is even, unlabored, Respiratory pattern is regular, symmetrical. GI: Reports nausea, vomiting, since this morning. : No signs and/or symptoms were reported regarding the genitourinary system. EENT: No signs and/or symptoms were reported regarding the EENT system. Derm: Skin is intact, is healthy with good turgor, Skin is pink, warm \\T\\ dry. Musculoskeletal: No signs and/or symptoms reported regarding the musculoskeletal system. Vital Signs: 20:29 BP 131 / 93; Pulse 96; Resp 16; Temp 98.1(TE); Pulse Ox 100% on R/A; Weight 52.16 kg; nj1 Height 5 ft. 8 in. ; Pain 10/10; 20:30 BP 122 / 83; Pulse 116; Resp 18; Pulse Ox 99% on R/A; me1 21:00 BP 132 / 83; Pulse 93; Resp 16; Pulse Ox 100% on R/A; me1 20:29 Body Mass Index 17.49 (52.16 kg, 172.72 cm) [facility] 20:29 Pain Scale: Adult nj1 [place] Coma Score: 21:36 Eye Response: spontaneous(4). Motor Response: obeys commands(6). Verbal Response: chuckie oriented(5). Total: 15. ED Course: 20:24 Patient arrived in ED. pf1 20:30 Eric Nolen MD is Attending Physician. [facility] 20:36 Triage completed. nj1 20:37 Arm band placed on. nj1 20:39 Sheila Mir, VEL is Primary Nurse. me1 20:58 No provider procedures requiring assistance completed. Inserted saline lock: 22 gauge pf1 in right antecubital area, using aseptic technique. Blood collected. 20:58 Initial lab(s) drawn, by ga, sent to lab. pf1 21:01 Comprehensive Metabolic Panel Sent. pf1 21:01 CBC with Diff Sent. pf1 21:12 Patient has correct armband on for positive identification. Bed in low position. Call me1 light in reach. Side rails up X 1. Provided Education on: POC. Verbalized understanding. . 21:39 Tj Beckman MD is Referral Physician. [facility] 21:43 Urinalysis w/ reflexes Sent. me1 21:43 Urine collected: clean catch specimen, clear. me1 22:17 IV discontinued, intact, bleeding controlled, No redness/swelling at site. Pressure me1 dressing applied. Administered Medications: 21:11 Drug: NS 0.9% IV 1000 ml IV at 1 bolus Per protocol; 1000 mL bolus Route: IV; Rate: 1 me1 bolus; Site: right antecubital; 22:16 Follow up: Response: No adverse reaction; IV Status: Completed infusion; IV Intake: me1 1000ml 21:11 Drug: metoCLOPramide IVP 10 mg IVP once; over 1 to 2 minutes Route: IVP; Site: right me1 antecubital; 21:47 Follow up: Response: No adverse reaction; Pain is decreased me1 21:11 Drug: diphenhydrAMINE IVP 50 mg IVP once Route: IVP; Site: right antecubital; me1 21:47 Follow up: Response: No adverse reaction; Pain is decreased me1 21:11 Drug: Ketorolac IVP 30 mg IVP once Route: IVP; Site: right antecubital; me1 21:47 Follow up: Response: No adverse reaction; Pain is decreased me1 Medication: 21:12 VIS not applicable for this client. me1 Intake: 22:16 IV: 1000ml; Total: 1000ml. me1 Outcome: 21:40 Discharge ordered by . chuckie 22:20 Discharged to home ambulatory, with family, pf1 22:20 Condition: improved 22:20 Discharge instructions given to patient, family, Instructed on discharge instructions, follow up and referral plans. Demonstrated understanding of instructions, follow-up care, medications, Prescriptions given X 2, 22:20 Patient left the ED. pf1 Signatures: Eric Nolen MD MD cha Finley, Pamala RN RN pf1 Lindy Alberto RN RN ks1 Sheila Mir RN RN me1 Corrections: (The following items were deleted from the chart) 22:18 22:17 Discharged to home ambulatory, me1 me1
[2023-12-01 22:00] LABS: Urine Bacteria <20 /HPF (<20); Urine Bilirubin NEGATIVE (Negative); Urine Blood Negative (Negative); Urine Clarity Turbid (Clear); Urine Color Light-Yellow (Yellow); Urine Culture Reflex Order NOT NEEDED; Urine Glucose NEGATIVE (Negative); Urine Ketones NEGATIVE (Negative); Urine Microscopic Reflex YN ORDER UMIC; Urine Mucus Slight /HPF (None Seen); Urine Nitrite NEGATIVE (Negative); Urine Protein NEGATIVE (Negative); Urine RBC <5 /HPF (None Seen); Urine Urobilinogen Normal (Normal); Urine WBC <5 /HPF (<5); Urine pH 5.5 (5.0-7.0)
[2023-12-01 22:48] VITALS: BP 132/83; TEMP 98.1; O2SAT 100
== END 2023-12-01 22:20 | disposition home or self-care (01) ==
LOC: ER 20:04
DX: G43.109 Migraine with aura, not intractable, without status migrainosus (principal); F17.290 Nicotine dependence, other tobacco product, uncomplicated; Z88.1 Allergy status to other antibiotic agents
CPT/HCPCS: 85025; 81001; 36415; 80053; J2765; J1200; J7030

== ENCOUNTER 2023-12-16 16:41 | Emergency (ER) | payer BC ==
[2023-12-16] MEDS ORDERED: KETOROLAC 30 MG/ML INJ ONE (17:03)
[2023-12-16] MEDS ORDERED: DIPHENHYDRAMINE 50 MG/ML VIAL ONE (17:03)
[2023-12-16] MEDS ORDERED: NA CHLORIDE 0.9% 1,000 ML ONE (17:03)
[2023-12-16] MEDS ORDERED: PROMETHAZINE INJ 25 MG/ML AMP ONE (17:03)
[2023-12-16] MEDS ORDERED: dexAMETHasone 10 MG/ML VIAL ONE (17:03)
--- NOTE | 2023-12-16 18:15 | EDPHYS ---
Physician Documentation [facility] Name: Fransisca Javier Age: 53 yrs Sex: Female : 1970 Arrival Date: 12/16/2023 Time: 16:41 Bed 18 Private MD: ODILIA Physician Eric Nolen HPI: 12/15 22:40 This 53 yrs old Female presents to ER via Wheelchair with complaints of Headache, kb Vomiting. 22:40 Pt is a 53 year old female who presents for migraines that started over a month ago. kb States she has them daily and cannot get them to go away and stay gone. Reports she has been to the ER about 15 times this month for a migraine cocktail which resolves the symptoms until the next day. States she has been seen at multiple different ERs and has had CT scans with and without contrast, blood work with no abnormal findings. Reports nausea, vomiting and photophobia. Historical: - Allergies: 17:01 Ciprofloxacin; aa5 - PMHx: 17:01 Migraines; TMJ; aa5 - PSHx: 17:01 Total abdominal hysterectomy; aa5 - Immunization history:: Adult Immunizations unknown. - Infectious Disease History:: Denies. - Social history:: Smoking status: Reported history of juuling and/or vaping. ROS: 20:31 Constitutional: As per HPI kb Exam: 20:31 Constitutional: This is a well developed, well nourished patient who is awake, alert, kb and in no acute distress. Head/Face: Normocephalic, atraumatic. ENT: Moist Mucous membranes Cardiovascular: Regular rate Respiratory: Respirations even and unlabored. No increased work of breathing. Talking in full sentences Abdomen/GI: Soft, non-tender. No distention Skin: Warm, dry with normal turgor. Normal color. MS/ Extremity: Pulses equal, no cyanosis. Neurovascular intact. Full, normal range of motion. Neuro: Awake and alert, GCS 15, oriented to person, place, time, and situation. Moves all extremities. Normal gait. Vital Signs: 16:49 BP 128 / 74; Pulse 101; Resp 20 S; Temp 97.8(TE); Pulse Ox 98% on R/A; Weight 54.43 kg aa5 (R); Height 5 ft. 8 in. (R); 18:24 BP 134 / 89; Pulse 75; Resp 15 S; Pulse Ox 100% on R/A; Pain 5/10; kc6 16:49 Body Mass Index 18.25 (54.43 kg, 172.72 cm) aa5 18:24 Pain Scale: Adult kc6 [place] Coma Score: 22:24 Eye Response: spontaneous(4). Motor Response: obeys commands(6). Verbal Response: kb oriented(5). Total: 15. MDM: 16:49 Patient medically screened. kb 20:32 Data reviewed: vital signs, nurses notes. kb 22:24 Differential diagnosis: intracerebral hemorrhage, migraine, sinusitis, tension kb headache. Consideration of Admission/Observation admission considered, but pain has improved and headaches have been ongoing for over a month. Pt has follow up appt scheduled with Dr Kamara. . Test considered but Not performed: CT: ct head considered but pt has had 2 CT head with and without contrast this week at other facilities. . 22:39 Counseling: I had a detailed discussion with the patient and/or guardian regarding the kb historical points, exam findings, and any diagnostic results supporting the discharge/admit diagnosis, the need for outpatient follow up, a neurologist, to return to the emergency department if symptoms worsen or persist or if there are any questions or concerns that arise at home. ED course: Symptoms have improved. Pt states she used to smoke marijuana and drink about 4 red bulls per day. States she quit both of those things and started having these worsening migraines. . 12/15 16:54 Order name: IV Start; Complete Time: 17:16 kb Administered Medications: 17:16 Drug: NS 0.9% IV 1000 ml IV at 1000 ml once Route: IV; Rate: 1000 ml; Site: right kc6 antecubital; 18:25 Follow up: Response: No adverse reaction; IV Status: Completed infusion; IV Intake: kc6 1000ml 17:17 Drug: diphenhydrAMINE IVP 12.5 mg IVP once Route: IVP; Site: right antecubital; kc6 18:25 Follow up: Response: No adverse reaction [facility] 17:17 Drug: Promethazine IVP 12.5 mg IVP once Route: IVP; Site: right antecubital; 6 18:25 Follow up: Response: No adverse reaction [facility] 17:17 Drug: Ketorolac IVP 15 mg IVP once Route: IVP; Site: right antecubital; kc6 18:25 Follow up: Response: No adverse reaction; Pain is decreased kc6 17:17 Drug: Decadron - Dexamethasone IVP 10 mg IVP once Route: IVP; Site: right antecubital; kc6 18:25 Follow up: Response: No adverse reaction kc6 Disposition Summary: 12/16/23 18:14 Discharge Ordered Notes: Location: Home kb Condition: Stable kb Diagnosis - Migraine without aura, not intractable kb Followup: kb - With: Emergency Department - When: As needed - Reason: Worsening of condition Followup: kb - With: Private Physician - When: 2 - 3 days - Reason: Recheck today's complaints, Continuance of care, Re-evaluation by your physician Discharge Instructions: - Discharge Summary Sheet kb - Migraine Headache, [id number] kb Forms: - Medication Reconciliation Form kb - Antibiotic Education kb - Prescription Opioid Use kb - Patient Portal Instructions kb - Leadership Thank You Letter kb Prescriptions: - promethazine 25 mg Rectal suppository - insert 1 suppository RECTAL route every 6 to 8 hours As needed; 12 suppository; kb Refills: 0, Product Selection Permitted Signatures: Yumiko Trejo, SHIMA MANCUSO-Marjorie Snyder RN RN aa5 Naima Rivera RN RN kc6 Corrections: (The following items were deleted from the chart) 22:43 22:40 Pt is a 53 year old female who presents for migraines that started over a month kb ago. States she has them daily and cannot get them to go away and stay gone. Reports she has been to the ER about 15 times this month for a migraine cocktail which resolves the symptoms until the next day. States she has been seen at multiple different ERs and has had CT scans with and without contrast, blood work with no abnormal findings. kb
--- NOTE | 2023-12-16 18:15 | ER ---
Nurse's Notes [facility] Name: Fransisca Javier Age: 53 yrs Sex: Female : 1970 Arrival Date: 12/16/2023 Time: 16:41 Bed 18 Private MD: Diagnosis: Migraine without aura, not intractable Presentation: 12/15 16:49 Chief complaint: Pt's states "she's had a migraine for 2 weeks and hasn't been aa5 able to get rid of it". Pt reports nausea/vomiting, headache, and light sensitivity. 16:49 Coronavirus screen: vomiting. Ebola Screen: Patient denies travel to an Ebola-affected [facility] area in the 21 days before illness onset. Initial Sepsis Screen: Does the patient meet any 2 criteria? No. Patient's initial sepsis screen is negative. Does the patient have a suspected source of infection? No. Patient's initial sepsis screen is negative. Risk Assessment: Do you want to hurt yourself or someone else? Patient reports no desire to harm self or others. Onset of symptoms was 2023. 16:49 Method Of Arrival: Wheelchair aa5 16:49 Acuity: CIARAN 3 aa5 Historical: - Allergies: 17:01 Ciprofloxacin; aa5 - PMHx: 17:01 Migraines; TMJ; aa5 - PSHx: 17:01 Total abdominal hysterectomy; aa5 - Immunization history:: Adult Immunizations unknown. - Infectious Disease History:: Denies. - Social history:: Smoking status: Reported history of juuling and/or vaping. Screenin:17 [facility] ED Fall Risk Assessment (Adult) History of falling in the last 3 months, kc6 including since admission No falls in past 3 months (0 pts) Confusion or Disorientation No (0 pts) Intoxicated or Sedated No (0 pts) Impaired Gait No (0 pts) Mobility Assist Device Used No (0 pt) Altered Elimination No (0 pt) Score/Fall Risk Level 0 - 2 = Low Risk. Abuse screen: Denies threats or abuse. Denies injuries from another. Nutritional screening: No deficits noted. Tuberculosis screening: No symptoms or risk factors identified. Assessment: 17:18 General: Appears in no apparent distress. uncomfortable, well groomed, well developed, kc6 Behavior is crying, restless. Pain: Noted to be crying, grimacing, moaning, restless. Neuro: Level of Consciousness is awake, alert, obeys commands, Oriented to person, place, time, situation, Appropriate for age Reports headache photophobia. Cardiovascular: Capillary refill < 3 seconds. Respiratory: Airway is patent Trachea midline Respiratory effort is even, pursed lip, Respiratory pattern is symmetrical, tachypnea. GI: Reports nausea, vomiting, Patient currently denies abdominal pain, diarrhea. : No signs and/or symptoms were reported regarding the genitourinary system. EENT: No signs and/or symptoms were reported regarding the EENT system. Derm: No signs and/or symptoms reported regarding the dermatologic system. Skin is intact, is healthy with good turgor, Skin is pink, warm \\T\\ dry. Musculoskeletal: No signs and/or symptoms reported regarding the musculoskeletal system. Circulation, motion, and sensation intact. Capillary refill < 3 seconds, Range of motion: intact in all extremities. 18:18 Reassessment: Patient appears in no apparent distress at this time. No changes from kc6 previously documented assessment. Patient and/or family updated on plan of care and expected duration. Pain level reassessed. Patient is alert, oriented x 3, equal unlabored respirations, skin warm/dry/pink. Vital Signs: 16:49 BP 128 / 74; Pulse 101; Resp 20 S; Temp 97.8(TE); Pulse Ox 98% on R/A; Weight 54.43 kg aa5 (R); Height 5 ft. 8 in. (R); 18:24 BP 134 / 89; Pulse 75; Resp 15 S; Pulse Ox 100% on R/A; Pain 5/10; kc6 16:49 Body Mass Index 18.25 (54.43 kg, 172.72 cm) aa5 18:24 Pain Scale: Adult kc6 [place] Coma Score: 22:24 Eye Response: spontaneous(4). Motor Response: obeys commands(6). Verbal Response: kb oriented(5). Total: 15. ED Course: 16:48 Patient arrived in ED. mg5 16:49 Yumiko Trejo FNP-C is [facility]. kb 16:49 Eric Nolen MD is Attending Physician. kb 16:49 Arm band placed on. aa5 16:50 Rivera, Naima, RN is Primary Nurse. kc6 17:01 Triage completed. aa5 17:17 Inserted saline lock: 20 gauge in right antecubital area, using aseptic technique. kc6 17:18 Patient has correct armband on for positive identification. Bed in low position. Call kc6 light in reach. Side rails up X 1. Adult w/ patient. Client placed on continuous cardiac and pulse oximetry monitoring. NIBP monitoring applied. 18:25 No provider procedures requiring assistance completed. IV discontinued, intact, kc6 bleeding controlled, No redness/swelling at site. Pressure dressing applied. Administered Medications: 17:16 Drug: NS 0.9% IV 1000 ml IV at 1000 ml once Route: IV; Rate: 1000 ml; Site: right kc6 antecubital; 18:25 Follow up: Response: No adverse reaction; IV Status: Completed infusion; IV Intake: kc6 1000ml 17:17 Drug: diphenhydrAMINE IVP 12.5 mg IVP once Route: IVP; Site: right antecubital; kc6 18:25 Follow up: Response: No adverse reaction kc6 17:17 Drug: Promethazine IVP 12.5 mg IVP once Route: IVP; Site: right antecubital; kc6 18:25 Follow up: Response: No adverse reaction kc6 17:17 Drug: Ketorolac IVP 15 mg IVP once Route: IVP; Site: right antecubital; kc6 18:25 Follow up: Response: No adverse reaction; Pain is decreased kc6 17:17 Drug: Decadron - Dexamethasone IVP 10 mg IVP once Route: IVP; Site: right antecubital; kc6 18:25 Follow up: Response: No adverse reaction kc6 Medication: 18:26 VIS not applicable for this client. kc6 Intake: 18:25 IV: 1000ml; Total: 1000ml. kc6 Outcome: 18:14 Discharge ordered by . kb 18:25 Discharged to home ambulatory, with significant other, kc6 18:25 Condition: improved 18:25 Discharge instructions given to patient, significant other, Instructed on discharge instructions, follow up and referral plans. medication usage, Demonstrated understanding of instructions, follow-up care, medications, Prescriptions given X 1, 18:26 Patient left the ED. kc6 Signatures: Yumiko Trejo, RUG HOOKER-C RUG HOOKER-Marjorie Snyder, RN RN aa5 Naima Rivera, RN RN kc6 Linda Strong mg5
[2023-12-16 18:59] VITALS: BP 134/89; TEMP 97.8; O2SAT 100
== END 2023-12-16 18:26 | disposition home or self-care (01) ==
LOC: ER 16:41
DX: G43.009 Migraine without aura, not intractable, without status migrainosus (principal); Z88.1 Allergy status to other antibiotic agents
CPT/HCPCS: 96361; 96375; 96374; 99284; J2550; J1200; J1100; J7030